=== PATIENT | male | born 1980 | race Caucasian/White ===

== ENCOUNTER 2016-12-22 08:25 | Emergency (ER) | payer OTHER ==
[~2016-12-22] VITALS: Ht 167.6 cm; Wt 81.5 kg
[~2016-12-22 08:25] MED LIST: ESCI20TA; FLUO40CA7 PO; QUET300XR; QUET300XR PO
[2016-12-22 09:28] LABS: BASOPHILS % (AUTO) 0.2 % (0.0-2.0); EOSINOPHILS % (AUTO) 1.7 % (1.0-6.0); HEMOGLOBIN 14.1 g/dL (13.5-17.5); LYMPHOCYTES # (AUTO) 1.2 K/uL (1.0-4.8); LYMPHOCYTES % (AUTO) 13.6 % (22.0-44.0); MEAN CORPUSCULAR HEMOGLOBIN 31.2 pg (26.0-34.0); MEAN CORPUSCULAR HGB CONC 33.5 G/dL (31.0-37.0); MEAN CORPUSCULAR VOLUME 93 fL (80-100); MONOCYTES # (AUTO) 0.7 K/uL (0.1-1.0); MONOCYTES % (AUTO) 7.3 % (2.0-9.0); NEUTROPHILS % (AUTO) 77.2 % (40.0-70.0); PLATELET COUNT (AUTO) 368 K/uL (150-450); RED BLOOD CELL COUNT(AUTO) 4.52 MIL/uL (4.50-5.90); RED CELL DISTRIBUTION WIDTH 13.3 % (11.5-14.5); WHITE BLOOD COUNT (AUTO) 9.1 K/uL (4.5-11.0)
[2016-12-22 09:38] LABS: ANION GAP 10 mmol/L (8-16); CALCIUM, TOTAL 8.8 mg/dL (8.8-10.5); CARBON DIOXIDE 26 mmol/L (22-29); CHLORIDE 98 mmol/L (98-107); CREATININE 0.91 mg/dL (0.60-1.30); GLOMERULAR FILTR. RATE CALC > 60 mL/min (>60); SODIUM SERUM 134 mmol/L (136-145); UREA NITROGEN, BLOOD 7 mg/dL (7-18)
[2016-12-22 09:43] LABS: ALANINE AMINOTRANSFERASE 43 U/L (12-78); ALBUMIN 3.7 g/dL (3.4-5.0); ASPARTATE AMINOTRANSFERASE 40 U/L (15-37); BILIRUBIN,TOTAL 0.3 mg/dL (0.1-1.0); TOTAL PROTEIN, SERUM 7.8 g/dL (6.4-8.2)
[2016-12-22 11:16] VITALS: BP 156/94
[2016-12-22] MEDS ORDERED: BUPR75 PO (21:00)
== END 2016-12-22 12:48 | disposition home or self-care (01) ==
LOC: EMS 08:26 → MERGE 08:26 → EMS 12:48
DX: F31.9 Bipolar disorder, unspecified (principal); F41.9 Anxiety disorder, unspecified; F12.90 Cannabis use, unspecified, uncomplicated
CPT/HCPCS: 36415; 80053; 80307; 85025; 99284; G0480

== ENCOUNTER 2016-12-22 20:47 | Emergency (ER) | payer OTHER ==
[~2016-12-22] VITALS: Ht 170.2 cm; Wt 81.8 kg
[2016-12-22] MEDS ORDERED: BUPR75 PO (21:00)
[2016-12-22 21:21] LABS: BASOPHILS # (AUTO) 0.03 K/uL (0.00-0.20); BASOPHILS % (AUTO) 0.4 % (0.0-2.0); EOSINOPHILS % (AUTO) 3.17 % (1.0-6.0); HEMATOCRIT 40.3 % (41-53); HEMOGLOBIN 13.9 g/dL (13.5-17.5); LYMPHOCYTES # (AUTO) 1.3 K/uL (1.0-4.8); MEAN CORPUSCULAR HEMOGLOBIN 31.8 pg (26.0-34.0); MEAN CORPUSCULAR HGB CONC 34.4 G/dL (31.0-37.0); MEAN CORPUSCULAR VOLUME 92 fL (80-100); MONOCYTES # (AUTO) 0.7 K/uL (0.1-1.0); MONOCYTES % (AUTO) 6.9 % (2.0-9.0); NEUTROPHILS # (AUTO) 7.2 K/uL (1.8-7.7); NEUTROPHILS % (AUTO) 75.6 % (40.0-70.0); PLATELET COUNT (AUTO) 363 K/uL (150-450); RED BLOOD CELL COUNT(AUTO) 4.36 MIL/uL (4.50-5.90); RED CELL DISTRIBUTION WIDTH 13.6 % (11.5-14.5); WHITE BLOOD COUNT (AUTO) 9.5 K/uL (4.5-11.0)
[2016-12-22 21:41] LABS: ANION GAP 14 mmol/L (8-16); CALCIUM, TOTAL 8.8 mg/dL (8.8-10.5); CARBON DIOXIDE 23 mmol/L (22-29); CHLORIDE 99 mmol/L (98-107); CREATININE 0.95 mg/dL (0.60-1.30); GLOMERULAR FILTR. RATE CALC > 60 mL/min (>60); POTASSIUM 3.7 mmol/L (3.5-5.1); SODIUM SERUM 136 mmol/L (136-145); UREA NITROGEN, BLOOD 11 mg/dL (7-18)
[2016-12-22 21:46] LABS: ALANINE AMINOTRANSFERASE 39 U/L (12-78); ALBUMIN 3.6 g/dL (3.4-5.0); ASPARTATE AMINOTRANSFERASE 35 U/L (15-37); BILIRUBIN,TOTAL 0.2 mg/dL (0.1-1.0); TOTAL PROTEIN, SERUM 7.6 g/dL (6.4-8.2)
[2016-12-22 23:18] VITALS: BP 147/85
== END 2016-12-23 01:30 | disposition left against medical advice (07) ==
LOC: EMS 20:49 → MERGE 20:49 → EMS 12-23 01:30
DX: Z00.8 Encounter for other general examination (principal); F31.9 Bipolar disorder, unspecified; F41.9 Anxiety disorder, unspecified; F12.90 Cannabis use, unspecified, uncomplicated; Z53.21 Procedure and treatment not carried out due to patient leaving prior to being seen by health care provider
CPT/HCPCS: 36415; 80053; 85025; G0480

== ENCOUNTER 2017-01-26 20:59 | Emergency (ER) | payer OTHER ==
[~2017-01-26] VITALS: Ht 162.6 cm; Wt 72.0 kg
[~2017-01-26 20:59] MED LIST changes: +BUPR75 PO
[2017-01-26 21:28] LABS: BASOPHILS # (AUTO) 0.06 K/uL (0.00-0.20); BASOPHILS % (AUTO) 0.5 % (0.0-2.0); EOSINOPHILS # (AUTO) 0.09 K/uL (0.00-0.70); EOSINOPHILS % (AUTO) 0.77 % (1.0-6.0); HEMATOCRIT 46.9 % (41-53); HEMOGLOBIN 15.8 g/dL (13.5-17.5); LYMPHOCYTES # (AUTO) 1.6 K/uL (1.0-4.8); LYMPHOCYTES % (AUTO) 14.2 % (22.0-44.0); MEAN CORPUSCULAR HEMOGLOBIN 31.4 pg (26.0-34.0); MEAN CORPUSCULAR HGB CONC 33.7 G/dL (31.0-37.0); MEAN CORPUSCULAR VOLUME 93 fL (80-100); MONOCYTES # (AUTO) 0.8 K/uL (0.1-1.0); MONOCYTES % (AUTO) 7.1 % (2.0-9.0); NEUTROPHILS # (AUTO) 8.7 K/uL (1.8-7.7); NEUTROPHILS % (AUTO) 77.5 % (40.0-70.0); PLATELET COUNT (AUTO) 398 K/uL (150-450); RED BLOOD CELL COUNT(AUTO) 5.03 MIL/uL (4.50-5.90); WHITE BLOOD COUNT (AUTO) 11.3 K/uL (4.5-11.0)
[2017-01-26 21:37] LABS: ANION GAP 11 mmol/L (8-16); CALCIUM, TOTAL 9.3 mg/dL (8.8-10.5); CARBON DIOXIDE 28 mmol/L (22-29); CHLORIDE 101 mmol/L (98-107); CREATININE 0.99 mg/dL (0.60-1.30); GLOMERULAR FILTR. RATE CALC > 60 mL/min (>60); POTASSIUM 3.9 mmol/L (3.5-5.1); SODIUM SERUM 140 mmol/L (136-145); UREA NITROGEN, BLOOD 11 mg/dL (7-18)
[2017-01-26 21:43] LABS: ALANINE AMINOTRANSFERASE 40 U/L (12-78); ASPARTATE AMINOTRANSFERASE 63 U/L (15-37); BILIRUBIN,TOTAL 0.4 mg/dL (0.1-1.0); TOTAL PROTEIN, SERUM 8.1 g/dL (6.4-8.2)
[2017-01-26] MEDS ORDERED: HALOPERIDOL 5 MG TABLET PO ONE (23:15)
[2017-01-26] MEDS ORDERED: LORazepam 2 MG TABLET PO ONE (23:15)
[2017-01-27 00:20] VITALS: BP 134/78
== END 2017-01-27 00:22 | disposition home or self-care (01) ==
LOC: EMS 21:01
DX: F25.9 Schizoaffective disorder, unspecified (principal); F31.9 Bipolar disorder, unspecified
CPT/HCPCS: 36415; 80053; 85025; 99284; G0480

== ENCOUNTER 2017-01-27 05:53 | Inpatient (IN) | payer MEDICAID, OTHER ==
[~2017-01-27] VITALS: Ht 167.6 cm; Wt 72.3 kg
[2017-01-27] MEDS ORDERED: HALOPERIDOL 5 MG TABLET PO ONE (07:30)
[2017-01-27] MEDS ORDERED: LORazepam 2 MG TABLET PO ONE (07:30)
[2017-01-27 14:55] LABS: BASOPHILS # (AUTO) 0.05 K/uL (0.00-0.20); BASOPHILS % (AUTO) 0.7 % (0.0-2.0); EOSINOPHILS # (AUTO) 0.14 K/uL (0.00-0.70); HEMATOCRIT 47.7 % (41-53); HEMOGLOBIN 15.7 g/dL (13.5-17.5); LYMPHOCYTES # (AUTO) 1.8 K/uL (1.0-4.8); LYMPHOCYTES % (AUTO) 22.7 % (22.0-44.0); MEAN CORPUSCULAR HEMOGLOBIN 31.2 pg (26.0-34.0); MEAN CORPUSCULAR HGB CONC 32.8 G/dL (31.0-37.0); MEAN CORPUSCULAR VOLUME 95 fL (80-100); MONOCYTES # (AUTO) 0.9 K/uL (0.1-1.0); MONOCYTES % (AUTO) 10.8 % (2.0-9.0); NEUTROPHILS # (AUTO) 5.1 K/uL (1.8-7.7); NEUTROPHILS % (AUTO) 64.1 % (40.0-70.0); PLATELET COUNT (AUTO) 355 K/uL (150-450); RED BLOOD CELL COUNT(AUTO) 5.02 MIL/uL (4.50-5.90)
[2017-01-27 15:08] LABS: ANION GAP 12 mmol/L (8-16); CARBON DIOXIDE 26 mmol/L (22-29); CHLORIDE 101 mmol/L (98-107); CREATININE 1.07 mg/dL (0.60-1.30); GLOMERULAR FILTR. RATE CALC > 60 mL/min (>60); SODIUM SERUM 139 mmol/L (136-145); UREA NITROGEN, BLOOD 10 mg/dL (7-18)
[2017-01-27 19:12] VITALS: BP 131/60
[2017-01-28 06:12] VITALS: BP 107/67
[2017-01-28 08:11] LABS: HEMOGLOBIN A1C 5.4 % (4.5-6.2)
[2017-01-28 08:41] LABS: CHOL/HDL RATIO 3.8 (4.2-7.3); THYROID STIMULATING HORMONE 0.66 uIU/mL (0.36-3.74)
[2017-01-28 09:07] VITALS: BP 132/63
[2017-01-28 16:00] VITALS: BP 132/71
[2017-01-28] MEDS: QUEtiapine FUMARATE 300 MG ER TABLET PO SCH (20:50)
[2017-01-28] MEDS ORDERED: IBUPROFEN 400 MG TABLET PO PRN (21:30)
[2017-01-28] MEDS ORDERED: ACETAMINOPHEN 325 MG TABLET PO PRN (21:30)
[2017-01-29 00:39] VITALS: BP 117/60
[2017-01-29 08:15] LABS: HEMOGLOBIN A1C 5.4 % (4.5-6.2)
[2017-01-29 08:20] LABS: CHOL/HDL RATIO 3.9 (4.2-7.3); THYROID STIMULATING HORMONE 0.61 uIU/mL (0.36-3.74)
[2017-01-29] MEDS: HALOPERIDOL 5 MG TABLET PO PRN (09:21)
[2017-01-29 09:26] VITALS: BP 126/70
[2017-01-29] MEDS ORDERED: HALOPERIDOL LACTATE 5 MG/ML VIAL IM ONE (10:30)
[2017-01-29] MEDS ORDERED: DiphenhydrAMINE HCL 50 MG/ML VIAL IM ONE (10:30)
[2017-01-29] MEDS ORDERED: LORazepam 2 MG/ML VIAL IM ONE (10:30)
[2017-01-29 16:00] VITALS: BP 118/68
[2017-01-29] MEDS: LORazepam 2 MG TABLET PO PRN (20:32)
[2017-01-29] MEDS: QUEtiapine FUMARATE 300 MG ER TABLET PO SCH (20:32)
[2017-01-30 08:17] VITALS: BP 117/62
[2017-01-30] MEDS: HALOPERIDOL 5 MG TABLET PO PRN ×2 (08:57→16:14)
[2017-01-30] MEDS: LORazepam 2 MG TABLET PO PRN ×2 (08:57→16:14)
[2017-01-30 16:00] VITALS: BP 128/75
[2017-01-30] MEDS: QUEtiapine FUMARATE 300 MG ER TABLET PO SCH (20:35)
[2017-01-31 01:48] VITALS: BP 112/62
[2017-01-31] MEDS: LORazepam 2 MG TABLET PO PRN ×3 (01:56→20:40)
[2017-01-31] MEDS: HALOPERIDOL 5 MG TABLET PO PRN (08:20)
[2017-01-31 08:45] VITALS: BP 104/62
[2017-01-31 16:00] VITALS: BP 128/68
[2017-01-31] MEDS: QUEtiapine FUMARATE 300 MG ER TABLET PO SCH (20:40)
[2017-02-01 02:55] VITALS: BP 116/73
[2017-02-01] MEDS: BuPROPion HCL 150 MG SR TABLET PO SCH (08:36)
[2017-02-01] MEDS: LORazepam 2 MG TABLET PO PRN ×3 (08:36→20:39)
[2017-02-01] MEDS: HALOPERIDOL 5 MG TABLET PO PRN ×2 (08:36→16:37)
[2017-02-01 10:52] VITALS: BP 123/67
[2017-02-01 16:35] VITALS: BP 119/65
[2017-02-01] MEDS: QUEtiapine FUMARATE 300 MG ER TABLET PO SCH (20:38)
[2017-02-01] MEDS: ZOLPIDEM TARTRATE 10 MG TABLET PO PRN (20:39)
[2017-02-02 06:26] VITALS: BP 110/69
[2017-02-02 08:18] VITALS: BP 113/63
[2017-02-02] MEDS: LORazepam 2 MG TABLET PO PRN (08:39)
[2017-02-02] MEDS: BuPROPion HCL 150 MG SR TABLET PO SCH (08:39)
[2017-02-02 16:11] VITALS: BP 120/66
[2017-02-02] MEDS: QUEtiapine FUMARATE 300 MG ER TABLET PO SCH (20:11)
[2017-02-02] MEDS: ZOLPIDEM TARTRATE 10 MG TABLET PO PRN (20:56)
[2017-02-03 05:15] VITALS: BP 122/72
[2017-02-03 08:14] VITALS: BP 134/72
[2017-02-03] MEDS: BuPROPion HCL 150 MG SR TABLET PO SCH (09:09)
[2017-02-03] MEDS: LORazepam 2 MG TABLET PO PRN ×3 (09:11→20:16)
[2017-02-03 16:00] VITALS: BP 132/81
[2017-02-03] MEDS: HALOPERIDOL 5 MG TABLET PO PRN (16:14)
[2017-02-03] MEDS: ZOLPIDEM TARTRATE 10 MG TABLET PO PRN (20:16)
[2017-02-03] MEDS: QUEtiapine FUMARATE 300 MG ER TABLET PO SCH (20:16)
[2017-02-04 06:07] VITALS: BP 122/74
[2017-02-04] MEDS: LORazepam 2 MG TABLET PO PRN ×2 (08:05→15:40)
[2017-02-04] MEDS: BuPROPion HCL 150 MG SR TABLET PO SCH (08:05)
[2017-02-04] MEDS: HALOPERIDOL 5 MG TABLET PO PRN ×2 (08:05→15:40)
[2017-02-04 08:15] VITALS: BP 114/75
[2017-02-04 16:00] VITALS: BP 129/68
[2017-02-04] MEDS: QUEtiapine FUMARATE 300 MG ER TABLET PO SCH (20:30)
[2017-02-05] MEDS ORDERED: MAG HYDROX/AL HYDROX/SIMETH ES 30 ML SUSPENSION UDCUP PO PRN (05:30)
[2017-02-05 06:46] VITALS: BP 124/69
[2017-02-05 08:14] VITALS: BP 111/61
[2017-02-05] MEDS: LORazepam 2 MG TABLET PO PRN ×2 (08:16→16:25)
[2017-02-05] MEDS: BuPROPion HCL 150 MG SR TABLET PO SCH (08:16)
[2017-02-05] MEDS: HALOPERIDOL 5 MG TABLET PO PRN ×2 (08:16→16:25)
[2017-02-05 16:00] VITALS: BP 132/72
[2017-02-05] MEDS: QUEtiapine FUMARATE 300 MG ER TABLET PO SCH (20:36)
[2017-02-06 00:37] VITALS: BP 112/77
[2017-02-06] MEDS: LORazepam 2 MG TABLET PO PRN ×3 (04:29→19:57)
[2017-02-06] MEDS: HALOPERIDOL 5 MG TABLET PO PRN (04:29)
[2017-02-06] MEDS: BuPROPion HCL 150 MG SR TABLET PO SCH (08:32)
[2017-02-06 08:46] VITALS: BP 141/70
[2017-02-06] MEDS ORDERED: LORazepam 2 MG/ML VIAL ONE (15:57)
[2017-02-06] MEDS ORDERED: DiphenhydrAMINE HCL 50 MG/ML VIAL ONE (15:58)
[2017-02-06] MEDS ORDERED: HALOPERIDOL LACTATE 5 MG/ML VIAL ONE (15:58)
[2017-02-06] MEDS ORDERED: HALOPERIDOL LACTATE 5 MG/ML VIAL IM ONE (16:15)
[2017-02-06] MEDS ORDERED: LORazepam 2 MG/ML VIAL IM ONE (16:15)
[2017-02-06] MEDS ORDERED: DiphenhydrAMINE HCL 50 MG/ML VIAL IM ONE (16:15)
[2017-02-06 16:38] VITALS: BP 124/68
[2017-02-06 16:46] VITALS: BP 128/78
[2017-02-06] MEDS: QUEtiapine FUMARATE 300 MG ER TABLET PO SCH (20:56)
[2017-02-07 00:56] VITALS: BP 116/70
[2017-02-07] MEDS: ZOLPIDEM TARTRATE 10 MG TABLET PO PRN ×2 (00:58→20:37)
[2017-02-07] MEDS: LORazepam 2 MG TABLET PO PRN ×3 (00:58→16:54)
[2017-02-07 08:14] VITALS: BP 114/72
[2017-02-07] MEDS: BuPROPion HCL 150 MG SR TABLET PO SCH (09:59)
[2017-02-07] MEDS: HALOPERIDOL 5 MG TABLET PO PRN (12:50)
[2017-02-07 16:00] VITALS: BP 118/69
[2017-02-07] MEDS: QUEtiapine FUMARATE 300 MG ER TABLET PO SCH (20:37)
[2017-02-08] MEDS: LORazepam 2 MG TABLET PO PRN ×4 (02:49→17:22)
[2017-02-08 05:04] VITALS: BP 122/72
[2017-02-08 08:23] VITALS: BP 105/59
[2017-02-08] MEDS: BuPROPion HCL 150 MG SR TABLET PO SCH (08:41)
[2017-02-08] MEDS: HALOPERIDOL 5 MG TABLET PO PRN ×3 (08:42→17:22)
[2017-02-08 16:00] VITALS: BP 109/65
[2017-02-08] MEDS: CIPROFLOXACIN HCL 0.3% 3.5 GM OPHTHALMIC OINTMENT OS SCH (17:06)
[2017-02-08] MEDS: QUEtiapine FUMARATE 300 MG ER TABLET PO SCH (20:04)
[2017-02-09] MEDS: LORazepam 2 MG TABLET PO PRN ×4 (03:23→17:55)
[2017-02-09 03:25] VITALS: BP 114/72
[2017-02-09 08:14] VITALS: BP 118/72
[2017-02-09] MEDS: HALOPERIDOL 5 MG TABLET PO PRN ×3 (08:27→17:55)
[2017-02-09] MEDS: BuPROPion HCL 150 MG SR TABLET PO SCH (08:28)
[2017-02-09] MEDS: CIPROFLOXACIN HCL 0.3% 3.5 GM OPHTHALMIC OINTMENT OS SCH ×2 (08:30→17:13)
[2017-02-09 16:13] VITALS: BP 115/67
[2017-02-09] MEDS: QUEtiapine FUMARATE 300 MG ER TABLET PO SCH (20:33)
[2017-02-09] MEDS: ZOLPIDEM TARTRATE 10 MG TABLET PO PRN (20:33)
[2017-02-10 01:06] VITALS: BP 112/62
[2017-02-10] MEDS: HALOPERIDOL 5 MG TABLET PO PRN ×4 (01:12→17:02)
[2017-02-10] MEDS: CIPROFLOXACIN HCL 0.3% 3.5 GM OPHTHALMIC OINTMENT OS SCH ×2 (08:27→17:02)
[2017-02-10] MEDS: BuPROPion HCL 150 MG SR TABLET PO SCH (08:28)
[2017-02-10] MEDS: LORazepam 2 MG TABLET PO PRN ×3 (08:28→17:02)
[2017-02-10 08:42] VITALS: BP 110/66
[2017-02-10 16:00] VITALS: BP 127/74
[2017-02-10] MEDS: ZOLPIDEM TARTRATE 10 MG TABLET PO PRN (20:40)
[2017-02-10] MEDS: QUEtiapine FUMARATE 300 MG ER TABLET PO SCH (20:40)
[2017-02-11 00:19] VITALS: BP 126/69
[2017-02-11] MEDS: HALOPERIDOL 5 MG TABLET PO PRN ×2 (08:23→13:33)
[2017-02-11] MEDS: BuPROPion HCL 150 MG SR TABLET PO SCH (08:23)
[2017-02-11] MEDS: LORazepam 2 MG TABLET PO PRN ×3 (08:23→17:33)
[2017-02-11 08:37] VITALS: BP 117/69
[2017-02-11] MEDS: CIPROFLOXACIN HCL 0.3% 3.5 GM OPHTHALMIC OINTMENT OS SCH ×2 (09:00→16:58)
[2017-02-11 16:14] VITALS: BP 131/68
[2017-02-11] MEDS: QUEtiapine FUMARATE 300 MG TABLET PO SCH (20:03)
[2017-02-12 05:49] VITALS: BP 128/64
[2017-02-12] MEDS: HALOPERIDOL 5 MG TABLET PO PRN ×3 (08:40→18:48)
[2017-02-12] MEDS: LORazepam 2 MG TABLET PO PRN ×3 (08:40→18:48)
[2017-02-12] MEDS: CIPROFLOXACIN HCL 0.3% 3.5 GM OPHTHALMIC OINTMENT OS SCH ×2 (08:41→16:34)
[2017-02-12 08:42] VITALS: BP 122/76
[2017-02-12] MEDS: BuPROPion HCL 150 MG SR TABLET PO SCH (10:57)
[2017-02-12 16:00] VITALS: BP 128/74
[2017-02-12] MEDS: QUEtiapine FUMARATE 300 MG TABLET PO SCH (20:37)
[2017-02-12] MEDS: ZOLPIDEM TARTRATE 10 MG TABLET PO PRN (20:37)
[2017-02-13 03:13] VITALS: BP 119/73
[2017-02-13] MEDS: BuPROPion HCL 150 MG SR TABLET PO SCH (08:05)
[2017-02-13] MEDS: CIPROFLOXACIN HCL 0.3% 3.5 GM OPHTHALMIC OINTMENT OS SCH (08:05)
[2017-02-13 08:16] VITALS: BP 110/62
[2017-02-13] MEDS ORDERED: BUPR150SR PO (08:54)
== END 2017-02-13 10:50 | disposition home or self-care (01) | DRG 750 ==
LOC: EMS 05:54 → MERGE 17:57 → B3A 17:57
PROVIDERS: ADMIT Psychiatry & Neurology Psychiatry; ATTEND Psychiatry & Neurology Psychiatry
DX: F25.9 Schizoaffective disorder, unspecified (principal); R56.9 Unspecified convulsions; R45.851 Suicidal ideations; F12.10 Cannabis abuse, uncomplicated
CPT/HCPCS: 83036; 84439; 84443; 99285; G0480; J1200; J1630; J2060

== ENCOUNTER 2017-02-17 20:15 | Emergency (ER) | payer OTHER ==
[~2017-02-17] VITALS: Ht 167.6 cm; Wt 81.8 kg
[~2017-02-17 20:15] MED LIST changes: +BUPR150SR PO; -BUPR75 PO
[2017-02-17] MEDS ORDERED: BUPR75 PO (20:20)
[2017-02-17] MEDS ORDERED: FLUO-191 PO (20:20)
[2017-02-17] MEDS ORDERED: QUET300T2 PO (20:20)
[2017-02-17 21:01] LABS: BASOPHILS % (AUTO) 0.5 % (0.0-2.0); EOSINOPHILS % (AUTO) 1.5 % (1.0-6.0); HEMATOCRIT 41.8 % (41-53); HEMOGLOBIN 13.7 g/dL (13.5-17.5); LYMPHOCYTES # (AUTO) 1.6 K/uL (1.0-4.8); LYMPHOCYTES % (AUTO) 16.1 % (22.0-44.0); MEAN CORPUSCULAR HEMOGLOBIN 30.3 pg (26.0-34.0); MEAN CORPUSCULAR HGB CONC 32.7 G/dL (31.0-37.0); MEAN CORPUSCULAR VOLUME 93 fL (80-100); MONOCYTES # (AUTO) 0.8 K/uL (0.1-1.0); MONOCYTES % (AUTO) 8.1 % (2.0-9.0); NEUTROPHILS # (AUTO) 7.2 K/uL (1.8-7.7); NEUTROPHILS % (AUTO) 73.8 % (40.0-70.0); PLATELET COUNT (AUTO) 362 K/uL (150-450); RED CELL DISTRIBUTION WIDTH 12.6 % (11.5-14.5); WHITE BLOOD COUNT (AUTO) 9.7 K/uL (4.5-11.0)
[2017-02-17 21:11] LABS: ANION GAP 6 mmol/L (8-16); CALCIUM, TOTAL 8.3 mg/dL (8.8-10.5); CARBON DIOXIDE 28 mmol/L (22-29); CHLORIDE 97 mmol/L (98-107); CREATININE 0.98 mg/dL (0.60-1.30); GLOMERULAR FILTR. RATE CALC > 60 mL/min (>60); POTASSIUM 3.4 mmol/L (3.5-5.1); SODIUM SERUM 131 mmol/L (136-145); UREA NITROGEN, BLOOD 8 mg/dL (7-18)
[2017-02-17 21:17] LABS: ALANINE AMINOTRANSFERASE 32 U/L (12-78); ALBUMIN 3.9 g/dL (3.4-5.0); ASPARTATE AMINOTRANSFERASE 25 U/L (15-37); BILIRUBIN,TOTAL 0.2 mg/dL (0.1-1.0); TOTAL PROTEIN, SERUM 7.6 g/dL (6.4-8.2)
[2017-02-17 22:07] LABS: ADD UA MICROSCOPIC NO; APPEARANCE,URINE CLEAR (CLEAR); GLUCOSE, URINE (UA) NEGATIVE (NEGATIVE); KETONES,URINE NEGATIVE (NEGATIVE); LEUKOCYTE ESTERASE ,URINE NEGATIVE (NEGATIVE); OCCULT BLOOD,URINE NEGATIVE (NEGATIVE); PROTEIN,URINE NEGATIVE (NEGATIVE)
[2017-02-17] MEDS ORDERED: LORazepam 2 MG TABLET PO ONE (23:15)
[2017-02-18 00:53] VITALS: BP 119/75
== END 2017-02-18 01:34 | disposition home or self-care (01) ==
LOC: EMS 20:18
DX: F41.9 Anxiety disorder, unspecified (principal); F25.9 Schizoaffective disorder, unspecified; F31.9 Bipolar disorder, unspecified
CPT/HCPCS: 36415; 80053; 80307; 81003; 85025; 99284; G0480

== ENCOUNTER 2018-11-30 03:58 | Emergency (ER) | payer OTHER ==
[~2018-11-30] VITALS: Ht 167.6 cm; Wt 81.0 kg
[~2018-11-30 03:58] MED LIST changes: +BUPR75 PO; -ESCI20TA; +FLUO-191 PO; +QUET300T2 PO; +QUET300T5 PO; -QUET300XR; -QUET300XR PO
[2018-11-30 04:53] LABS: BASOPHILS % (AUTO) 0.9 % (0.0-2.0); EOSINOPHILS % (AUTO) 2.2 % (1.0-6.0); HEMOGLOBIN 14.3 g/dL (13.5-17.5); LYMPHOCYTES # (AUTO) 1.8 K/uL (1.0-4.8); LYMPHOCYTES % (AUTO) 19.2 % (22.0-44.0); MEAN CORPUSCULAR HGB CONC 34.8 G/dL (31.0-37.0); MEAN CORPUSCULAR VOLUME 89 fL (80-100); MONOCYTES # (AUTO) 0.9 K/uL (0.1-1.0); MONOCYTES % (AUTO) 9.6 % (2.0-9.0); NEUTROPHILS # (AUTO) 6.2 K/uL (1.8-7.7); NEUTROPHILS % (AUTO) 68.1 % (40.0-70.0); PLATELET COUNT (AUTO) 315 K/uL (150-450); RED CELL DISTRIBUTION WIDTH 13.1 % (11.5-14.5)
[2018-11-30 05:06] LABS: ALANINE AMINOTRANSFERASE 24 U/L (12-78); ALBUMIN 3.5 g/dL (3.4-5.0); ALKALINE PHOSPHATASE 88 U/L (46-116); ANION GAP 9 mmol/L (8-16); ASPARTATE AMINOTRANSFERASE 17 U/L (15-37); BILIRUBIN,TOTAL 0.2 mg/dL (0.1-1.0); CALCIUM, TOTAL 8.5 mg/dL (8.8-10.5); CARBON DIOXIDE 26 mmol/L (22-29); CHLORIDE 103 mmol/L (98-107); GLOMERULAR FILTR. RATE CALC > 60 mL/min (>60); GLUCOSE,RANDOM 110 mg/dL (70-110); POTASSIUM 3.2 mmol/L (3.5-5.1); SODIUM SERUM 138 mmol/L (136-145); TOTAL PROTEIN, SERUM 7.3 g/dL (6.4-8.2); UREA NITROGEN, BLOOD 7 mg/dL (7-18)
[2018-11-30 06:59] LABS: AMPHET/METH SCREEN,URINE NEGATIVE (NEGATIVE); BARBITURATE SCREEN, URINE POSITIVE (NEGATIVE); BENZODIAZEPINES SCREEN,URINE NEGATIVE (NEGATIVE); CANNABINOID SCREEN,URINE POSITIVE (NEGATIVE); COCAINE SCREEN,URINE NEGATIVE (NEGATIVE); METHADONE SCREEN, URINE NEGATIVE (NEGATIVE); OPIATE SCREEN,URINE NEGATIVE (NEGATIVE); PHENCYCLIDINE SCREEN,URINE NEGATIVE (NEGATIVE)
[2018-11-30] MEDS ORDERED: QUEtiapine FUMARATE 50 MG ER TABLET PO ONE (07:15)
[2018-11-30] MEDS ORDERED: POTASSIUM CHLORIDE 20 MEQ ER TABLET PO ONE (07:15)
[2018-11-30 08:02] VITALS: BP 133/79
[2018-12-02] MEDS ORDERED: FLUO-191 PO (11:30)
== END 2018-11-30 08:05 | disposition home or self-care (01) ==
LOC: EMS 03:59
DX: F25.0 Schizoaffective disorder, bipolar type (principal); E87.6 Hypokalemia; Z79.899 Other long term (current) drug therapy
CPT/HCPCS: 36415; 80053; 80307; 85025; 99284; G0480

== ENCOUNTER 2018-11-30 08:52 | Emergency (ER) | payer OTHER ==
[~2018-11-30] VITALS: Ht 172.7 cm; Wt 81.8 kg
[2018-11-30 10:10] VITALS: BP 118/72
[2018-12-02] MEDS ORDERED: FLUO-191 PO (11:30)
== END 2018-11-30 10:13 | disposition home or self-care (01) ==
LOC: EMS 08:53
DX: Z02.89 Encounter for other administrative examinations (principal); F25.0 Schizoaffective disorder, bipolar type

== ENCOUNTER 2018-11-30 22:27 | Emergency (ER) | payer OTHER ==
[~2018-11-30] VITALS: Ht 167.6 cm; Wt 81.8 kg
[2018-12-01] LABS: BASOPHILS % (AUTO) 1.1 % (0.0-2.0); HEMATOCRIT 38.5 % (41-53); HEMOGLOBIN 13.3 g/dL (13.5-17.5); LYMPHOCYTES # (AUTO) 1.8 K/uL (1.0-4.8); LYMPHOCYTES % (AUTO) 23.5 % (22.0-44.0); MEAN CORPUSCULAR HEMOGLOBIN 31.4 pg (26.0-34.0); MEAN CORPUSCULAR HGB CONC 34.5 G/dL (31.0-37.0); MEAN CORPUSCULAR VOLUME 91 fL (80-100); MONOCYTES # (AUTO) 0.9 K/uL (0.1-1.0); MONOCYTES % (AUTO) 11.7 % (2.0-9.0); NEUTROPHILS # (AUTO) 4.6 K/uL (1.8-7.7); NEUTROPHILS % (AUTO) 60.7 % (40.0-70.0); PLATELET COUNT (AUTO) 287 K/uL (150-450); RED BLOOD CELL COUNT(AUTO) 4.22 MIL/uL (4.50-5.90); RED CELL DISTRIBUTION WIDTH 13.3 % (11.5-14.5)
[2018-12-01 00:32] LABS: ANION GAP 12 mmol/L (8-16); CALCIUM, TOTAL 8.3 mg/dL (8.8-10.5); CARBON DIOXIDE 22 mmol/L (22-29); CHLORIDE 103 mmol/L (98-107); GLOMERULAR FILTR. RATE CALC > 60 mL/min (>60); GLUCOSE,RANDOM 98 mg/dL (70-110); POTASSIUM 3.9 mmol/L (3.5-5.1); SODIUM SERUM 137 mmol/L (136-145); UREA NITROGEN, BLOOD 10 mg/dL (7-18)
[2018-12-01 00:37] LABS: ALANINE AMINOTRANSFERASE 22 U/L (12-78); ALBUMIN 3.1 g/dL (3.4-5.0); ALKALINE PHOSPHATASE 82 U/L (46-116); ASPARTATE AMINOTRANSFERASE 16 U/L (15-37); BILIRUBIN,TOTAL 0.2 mg/dL (0.1-1.0)
[2018-12-01 10:39] VITALS: BP 131/79
[2018-12-02] MEDS ORDERED: FLUO-191 PO (11:30)
== END 2018-12-01 10:42 | disposition home or self-care (01) ==
LOC: EMS 22:28
DX: F25.0 Schizoaffective disorder, bipolar type (principal)
CPT/HCPCS: 36415; 80053; 85025; 99284; G0480

== ENCOUNTER 2018-12-02 16:33 | Emergency (ER) | payer OTHER ==
[~2018-12-02] VITALS: Ht 167.6 cm; Wt 81.8 kg
[~2018-12-02 16:33] MED LIST changes: -BUPR75 PO; -QUET300T2 PO
[2018-12-02] MEDS ORDERED: ONDANSETRON HCL 4 MG TABLET PO ONE (22:00)
[2018-12-02] MEDS ORDERED: FAMOTIDINE 20 MG TABLET PO ONE (22:00)
[2018-12-02] MEDS ORDERED: SODIUM CHLORIDE 0.9% 1,000 ML IV ONE (22:30)
[2018-12-02 23:59] VITALS: BP 136/69
== END 2018-12-03 00:39 | disposition home or self-care (01) ==
LOC: EMS 16:34
DX: R10.84 Generalized abdominal pain (principal); R19.7 Diarrhea, unspecified; R11.2 Nausea with vomiting, unspecified; F31.9 Bipolar disorder, unspecified; F20.9 Schizophrenia, unspecified; Z79.899 Other long term (current) drug therapy
CPT/HCPCS: 74176; 96360; 99284; J7030; Q0162

== ENCOUNTER 2018-12-03 08:34 | Emergency (ER) | payer OTHER ==
[~2018-12-03] VITALS: Ht 167.6 cm; Wt 80.0 kg
[~2018-12-03 08:34] MED LIST changes: -FLUO40CA7 PO
[2018-12-03 10:14] LABS: BASOPHILS % (AUTO) 0.8 % (0.0-2.0); EOSINOPHILS % (AUTO) 2.3 % (1.0-6.0); HEMATOCRIT 38.4 % (41-53); HEMOGLOBIN 13.4 g/dL (13.5-17.5); LYMPHOCYTES # (AUTO) 1.6 K/uL (1.0-4.8); LYMPHOCYTES % (AUTO) 18.3 % (22.0-44.0); MEAN CORPUSCULAR HEMOGLOBIN 31.6 pg (26.0-34.0); MEAN CORPUSCULAR VOLUME 90 fL (80-100); MONOCYTES # (AUTO) 0.8 K/uL (0.1-1.0); MONOCYTES % (AUTO) 8.4 % (2.0-9.0); NEUTROPHILS # (AUTO) 6.2 K/uL (1.8-7.7); NEUTROPHILS % (AUTO) 70.2 % (40.0-70.0); PLATELET COUNT (AUTO) 329 K/uL (150-450); RED BLOOD CELL COUNT(AUTO) 4.26 MIL/uL (4.50-5.90); RED CELL DISTRIBUTION WIDTH 13.1 % (11.5-14.5)
[2018-12-03 10:23] LABS: ANION GAP 9 mmol/L (8-16); CALCIUM, TOTAL 8.4 mg/dL (8.8-10.5); CARBON DIOXIDE 27 mmol/L (22-29); CHLORIDE 104 mmol/L (98-107); CREATININE 0.93 mg/dL (0.60-1.30); GLOMERULAR FILTR. RATE CALC > 60 mL/min (>60); GLUCOSE,RANDOM 106 mg/dL (70-110); POTASSIUM 3.9 mmol/L (3.5-5.1); SODIUM SERUM 140 mmol/L (136-145); UREA NITROGEN, BLOOD 9 mg/dL (7-18)
[2018-12-03 10:24] LABS: AMPHET/METH SCREEN,URINE NEGATIVE (NEGATIVE); BARBITURATE SCREEN, URINE NEGATIVE (NEGATIVE); BENZODIAZEPINES SCREEN,URINE NEGATIVE (NEGATIVE); CANNABINOID SCREEN,URINE POSITIVE (NEGATIVE); COCAINE SCREEN,URINE NEGATIVE (NEGATIVE); METHADONE SCREEN, URINE NEGATIVE (NEGATIVE); OPIATE SCREEN,URINE NEGATIVE (NEGATIVE)
[2018-12-03 10:27] LABS: PHENCYCLIDINE SCREEN,URINE NEGATIVE (NEGATIVE)
[2018-12-03 10:29] LABS: ALANINE AMINOTRANSFERASE 32 U/L (12-78); ALBUMIN 3.4 g/dL (3.4-5.0); ALKALINE PHOSPHATASE 80 U/L (46-116); ASPARTATE AMINOTRANSFERASE 20 U/L (15-37); BILIRUBIN,TOTAL 0.2 mg/dL (0.1-1.0)
[2018-12-03 12:19] VITALS: BP 122/77
== END 2018-12-03 12:29 | disposition home or self-care (01) ==
LOC: EMS 08:36
DX: F20.9 Schizophrenia, unspecified (principal); F31.9 Bipolar disorder, unspecified; Z59.0 Homelessness; Z79.899 Other long term (current) drug therapy

== ENCOUNTER 2018-12-05 19:07 | Emergency (ER) | payer OTHER ==
[~2018-12-05] VITALS: Ht 167.6 cm; Wt 81.8 kg
[2018-12-05 20:31] LABS: BASOPHILS % (AUTO) 0.6 % (0.0-2.0); EOSINOPHILS % (AUTO) 0.9 % (1.0-6.0); HEMATOCRIT 39.5 % (41-53); HEMOGLOBIN 14.2 g/dL (13.5-17.5); LYMPHOCYTES # (AUTO) 1.1 K/uL (1.0-4.8); LYMPHOCYTES % (AUTO) 10.2 % (22.0-44.0); MEAN CORPUSCULAR HEMOGLOBIN 32.2 pg (26.0-34.0); MEAN CORPUSCULAR HGB CONC 35.9 G/dL (31.0-37.0); MEAN CORPUSCULAR VOLUME 90 fL (80-100); MONOCYTES # (AUTO) 0.5 K/uL (0.1-1.0); MONOCYTES % (AUTO) 5.1 % (2.0-9.0); NEUTROPHILS # (AUTO) 8.8 K/uL (1.8-7.7); NEUTROPHILS % (AUTO) 83.2 % (40.0-70.0); PLATELET COUNT (AUTO) 362 K/uL (150-450); RED CELL DISTRIBUTION WIDTH 13.2 % (11.5-14.5)
[2018-12-05 20:33] LABS: ANION GAP 11 mmol/L (8-16); CALCIUM, TOTAL 8.7 mg/dL (8.8-10.5); CARBON DIOXIDE 26 mmol/L (22-29); CHLORIDE 101 mmol/L (98-107); CREATININE 1.18 mg/dL (0.60-1.30); GLOMERULAR FILTR. RATE CALC > 60 mL/min (>60); GLUCOSE,RANDOM 156 mg/dL (70-110); POTASSIUM 3.6 mmol/L (3.5-5.1); SODIUM SERUM 138 mmol/L (136-145); UREA NITROGEN, BLOOD 13 mg/dL (7-18)
[2018-12-05 20:35] LABS: AMPHET/METH SCREEN,URINE NEGATIVE (NEGATIVE); BARBITURATE SCREEN, URINE NEGATIVE (NEGATIVE); BENZODIAZEPINES SCREEN,URINE NEGATIVE (NEGATIVE); CANNABINOID SCREEN,URINE NEGATIVE (NEGATIVE); COCAINE SCREEN,URINE NEGATIVE (NEGATIVE); METHADONE SCREEN, URINE NEGATIVE (NEGATIVE); OPIATE SCREEN,URINE NEGATIVE (NEGATIVE)
[2018-12-05 20:38] LABS: PHENCYCLIDINE SCREEN,URINE NEGATIVE (NEGATIVE)
[2018-12-05 20:40] LABS: ALANINE AMINOTRANSFERASE 29 U/L (12-78); ALBUMIN 3.8 g/dL (3.4-5.0); ALKALINE PHOSPHATASE 98 U/L (46-116); ASPARTATE AMINOTRANSFERASE 19 U/L (15-37); BILIRUBIN,TOTAL 0.2 mg/dL (0.1-1.0); TOTAL PROTEIN, SERUM 7.8 g/dL (6.4-8.2)
[2018-12-05 21:45] VITALS: BP 121/75
[2018-12-05] MEDS ORDERED: LORazepam 1 MG TABLET PO ONE (21:45)
[2018-12-06] MEDS ORDERED: RANI150T7 PO (15:50)
== END 2018-12-05 21:56 | disposition home or self-care (01) ==
LOC: EMS 19:08
DX: F20.9 Schizophrenia, unspecified (principal); F31.9 Bipolar disorder, unspecified; Z79.899 Other long term (current) drug therapy; Z59.0 Homelessness
CPT/HCPCS: 36415; 80053; 80307; 85025; 99284; G0480

== ENCOUNTER 2018-12-06 14:51 | Emergency (ER) | payer OTHER ==
[~2018-12-06] VITALS: Ht 170.2 cm; Wt 81.8 kg
[2018-12-06] MEDS ORDERED: RANI150T7 PO (15:50)
[2018-12-06] MEDS ORDERED: PB/HYOSCY/ATR/SCOP/LIDO/MAALOX 55 ML BOTTLE PO ONE (18:15)
[2018-12-06 19:03] LABS: HEMATOCRIT 38.8 % (41-53); HEMOGLOBIN 13.5 g/dL (13.5-17.5); LYMPHOCYTES # (AUTO) 1.7 K/uL (1.0-4.8); LYMPHOCYTES % (AUTO) 16.4 % (22.0-44.0); MEAN CORPUSCULAR HEMOGLOBIN 31.5 pg (26.0-34.0); MEAN CORPUSCULAR HGB CONC 34.8 G/dL (31.0-37.0); MEAN CORPUSCULAR VOLUME 90 fL (80-100); MONOCYTES # (AUTO) 0.8 K/uL (0.1-1.0); MONOCYTES % (AUTO) 7.6 % (2.0-9.0); NEUTROPHILS # (AUTO) 7.5 K/uL (1.8-7.7); PLATELET COUNT (AUTO) 351 K/uL (150-450); RED CELL DISTRIBUTION WIDTH 13.3 % (11.5-14.5)
[2018-12-06 19:07] LABS: ANION GAP 10 mmol/L (8-16); CALCIUM, TOTAL 9.2 mg/dL (8.8-10.5); CARBON DIOXIDE 27 mmol/L (22-29); CHLORIDE 99 mmol/L (98-107); CREATININE 0.91 mg/dL (0.60-1.30); GLOMERULAR FILTR. RATE CALC > 60 mL/min (>60); GLUCOSE,RANDOM 96 mg/dL (70-110); POTASSIUM 3.7 mmol/L (3.5-5.1); SODIUM SERUM 136 mmol/L (136-145); UREA NITROGEN, BLOOD 7 mg/dL (7-18)
[2018-12-06 19:13] LABS: ALANINE AMINOTRANSFERASE 25 U/L (12-78); ALBUMIN 3.8 g/dL (3.4-5.0); ALKALINE PHOSPHATASE 69 U/L (46-116); ASPARTATE AMINOTRANSFERASE 18 U/L (15-37); BILIRUBIN,TOTAL 0.4 mg/dL (0.1-1.0); LIPASE 43 U/L (73-393); TOTAL PROTEIN, SERUM 7.6 g/dL (6.4-8.2)
[2018-12-06] MEDS ORDERED: IOVERSOL 320 MG/ML 100 ML VIAL ONE (19:23)
[2018-12-06] MEDS ORDERED: SODIUM CHLORIDE 0.9% 0 ML ONE (19:23)
[2018-12-06 20:35] VITALS: BP 128/70
== END 2018-12-06 20:50 | disposition home or self-care (01) ==
LOC: EMS 14:52
DX: R10.13 Epigastric pain (principal); R11.0 Nausea; F31.9 Bipolar disorder, unspecified; F20.9 Schizophrenia, unspecified
CPT/HCPCS: 36415; 80053; 83690; 85025; 99283; G0480; J7050

== ENCOUNTER 2018-12-07 06:44 | Emergency (ER) | payer OTHER ==
[~2018-12-07] VITALS: Ht 167.6 cm; Wt 81.8 kg
[~2018-12-07 06:44] MED LIST changes: +RANI150T7 PO
[2018-12-07] MEDS ORDERED: PB/HYOSCY/ATR/SCOP/LIDO/MAALOX 55 ML BOTTLE PO ONE (08:00)
[2018-12-07 08:19] LABS: AMPHET/METH SCREEN,URINE NEGATIVE (NEGATIVE); BARBITURATE SCREEN, URINE POSITIVE (NEGATIVE); BENZODIAZEPINES SCREEN,URINE NEGATIVE (NEGATIVE); CANNABINOID SCREEN,URINE POSITIVE (NEGATIVE); COCAINE SCREEN,URINE NEGATIVE (NEGATIVE); METHADONE SCREEN, URINE NEGATIVE (NEGATIVE); OPIATE SCREEN,URINE NEGATIVE (NEGATIVE)
[2018-12-07 08:20] LABS: PHENCYCLIDINE SCREEN,URINE NEGATIVE (NEGATIVE)
[2018-12-07 08:22] LABS: BASOPHILS % (AUTO) 0.6 % (0.0-2.0); HEMATOCRIT 38.5 % (41-53); HEMOGLOBIN 13.8 g/dL (13.5-17.5); LYMPHOCYTES % (AUTO) 10.8 % (22.0-44.0); MEAN CORPUSCULAR HEMOGLOBIN 31.9 pg (26.0-34.0); MEAN CORPUSCULAR HGB CONC 35.8 G/dL (31.0-37.0); MEAN CORPUSCULAR VOLUME 89 fL (80-100); MONOCYTES # (AUTO) 0.6 K/uL (0.1-1.0); MONOCYTES % (AUTO) 6.5 % (2.0-9.0); NEUTROPHILS # (AUTO) 7.6 K/uL (1.8-7.7); NEUTROPHILS % (AUTO) 81.1 % (40.0-70.0); PLATELET COUNT (AUTO) 324 K/uL (150-450); RED BLOOD CELL COUNT(AUTO) 4.33 MIL/uL (4.50-5.90); RED CELL DISTRIBUTION WIDTH 13.3 % (11.5-14.5)
[2018-12-07 08:35] LABS: ANION GAP 7 mmol/L (8-16); CALCIUM, TOTAL 8.9 mg/dL (8.8-10.5); CARBON DIOXIDE 29 mmol/L (22-29); CHLORIDE 102 mmol/L (98-107); CREATININE 0.91 mg/dL (0.60-1.30); GLOMERULAR FILTR. RATE CALC > 60 mL/min (>60); GLUCOSE,RANDOM 91 mg/dL (70-110); POTASSIUM 4.2 mmol/L (3.5-5.1); SODIUM SERUM 138 mmol/L (136-145); UREA NITROGEN, BLOOD 8 mg/dL (7-18)
[2018-12-07 08:41] LABS: ALANINE AMINOTRANSFERASE 24 U/L (12-78); ALBUMIN 3.7 g/dL (3.4-5.0); ALKALINE PHOSPHATASE 65 U/L (46-116); ASPARTATE AMINOTRANSFERASE 15 U/L (15-37); BILIRUBIN,TOTAL 0.4 mg/dL (0.1-1.0); LIPASE 41 U/L (73-393); TOTAL PROTEIN, SERUM 7.5 g/dL (6.4-8.2)
[2018-12-07 09:48] VITALS: BP 139/83
== END 2018-12-07 09:59 | disposition home or self-care (01) ==
LOC: EMS 06:45
DX: K27.9 Peptic ulcer, site unspecified, unspecified as acute or chronic, without hemorrhage or perforation (principal); R42 Dizziness and giddiness; F31.9 Bipolar disorder, unspecified; F20.9 Schizophrenia, unspecified; Z79.899 Other long term (current) drug therapy
CPT/HCPCS: 36415; 80053; 80307; 83690; 85025; 99283; G0480

== ENCOUNTER 2021-09-08 08:45 | Inpatient (IN) | payer OTHER ==
[~2021-09-08] VITALS: Ht 175.3 cm; Wt 85.4 kg
[2021-09-08 09:20] LABS: BASOPHILS % (AUTO) 0.5 % (0.0-2.0); EOSINOPHILS % (AUTO) 1.6 % (1.0-6.0); HEMATOCRIT 36.5 % (41-53); HEMOGLOBIN 12.6 g/dL (13.5-17.5); LYMPHOCYTES # (AUTO) 0.8 K/uL (1.0-4.8); LYMPHOCYTES % (AUTO) 11.2 % (22.0-44.0); MEAN CORPUSCULAR HEMOGLOBIN 31.2 pg (26.0-34.0); MEAN CORPUSCULAR HGB CONC 34.5 G/dL (31.0-37.0); MEAN CORPUSCULAR VOLUME 91 fL (80-100); MONOCYTES # (AUTO) 0.4 K/uL (0.1-1.0); MONOCYTES % (AUTO) 5.8 % (2.0-9.0); NEUTROPHILS # (AUTO) 5.6 K/uL (1.8-7.7); NEUTROPHILS % (AUTO) 80.9 % (40.0-70.0); PLATELET COUNT (AUTO) 284 K/uL (150-450); RED BLOOD CELL COUNT(AUTO) 4.03 MIL/uL (4.50-5.90); RED CELL DISTRIBUTION WIDTH 12.7 % (11.5-14.5)
[2021-09-08 09:20] LABS: GLUCOSE,POINT OF CARE 295 MG/DL (70-110)
[2021-09-08] MEDS: OXYGEN THERAPY IH SCH ×2 (09:37→20:00)
[2021-09-08 09:55] LABS: ALANINE AMINOTRANSFERASE 25 U/L (12-78); ALKALINE PHOSPHATASE 66 U/L (46-116); ANION GAP 12 mmol/L (8-16); ASPARTATE AMINOTRANSFERASE 20 U/L (15-37); BILIRUBIN,TOTAL 0.3 mg/dL (0.1-1.0); CALCIUM, TOTAL 8.3 mg/dL (8.8-10.5); CARBON DIOXIDE 23 mmol/L (22-29); CHLORIDE 99 mmol/L (98-107); CREATINE KINASE, TOTAL ONLY 851 U/L (39-308); CREATININE 1.42 mg/dL (0.60-1.30); GLOMERULAR FILTR. RATE CALC 56 mL/min (>60); GLUCOSE,RANDOM 291 mg/dL (70-110); LIPASE 117 U/L (73-393); POTASSIUM 2.8 mmol/L (3.5-5.1); SODIUM SERUM 134 mmol/L (136-145); TOTAL PROTEIN, SERUM 6.4 g/dL (6.4-8.2); UREA NITROGEN, BLOOD 11 mg/dL (7-18)
[2021-09-08] MEDS ORDERED: NALOXONE HCL 0.4 MG/ML VIAL IVP ONE (10:30)
[2021-09-08] MEDS ORDERED: NALOXONE HCL 1 MG/ML SYRINGE IVP ONE ×2 (10:45→14:30)
[2021-09-08] MEDS ORDERED: FLUMAZENIL 0.1 MG/ML 5 ML VIAL IVP ONE (11:15)
[2021-09-08 11:42] LABS: AMPHET/METH SCREEN,URINE NEGATIVE (NEGATIVE); BARBITURATE SCREEN, URINE NEGATIVE (NEGATIVE); BENZODIAZEPINES SCREEN,URINE NEGATIVE (NEGATIVE); CANNABINOID SCREEN,URINE POSITIVE (NEGATIVE); COCAINE SCREEN,URINE NEGATIVE (NEGATIVE); METHADONE SCREEN, URINE NEGATIVE (NEGATIVE); OPIATE SCREEN,URINE NEGATIVE (NEGATIVE); PHENCYCLIDINE SCREEN,URINE NEGATIVE (NEGATIVE)
[2021-09-08] MEDS ORDERED: NALOXONE HCL 1 MG/ML SYRINGE IVP PRN (11:45)
[2021-09-08] MEDS ORDERED: SODIUM CHLORIDE 0.9% 1,000 ML IV ONE (11:45)
[2021-09-08] MEDS ORDERED: BISACODYL 10 MG RECTAL RECTAL SUPPOSITORY PR PRN (11:45)
[2021-09-08] MEDS ORDERED: MAGNESIUM HYDROXIDE SUSPENSION 30 ML UDCUP PO PRN (11:45)
[2021-09-08] MEDS ORDERED: ZOLPIDEM TARTRATE 5 MG TABLET PO PRN (11:45)
[2021-09-08 14:38] LABS: SALICYLATE 0.9 mg/dL (2.8-20.0)
[2021-09-08 14:42] LABS: ACETAMINOPHEN < 2 mcg/mL (10-30)
[2021-09-08 14:51] LABS: ABG BASE EXCESS -5.3 mmol/L (-2.0-3.0); ABG CARBOXYHEMOGLOBIN 0.3 % (0.0-1.5); ABG HCO3 20.5 mmol/L (22.0-26.0); ABG METHEMOGLOBIN 0.3 % (0.0-1.5); ABG OXYGEN CONTENT 16.6 mL/dL (15.0-23.0); ABG OXYGEN SATURATION 92.5 % (95.0-98.0); ABG OXYHEMOGLOBIN 91.9 % (94.0-100.0); ABG PCO2 37 mmHg (35-45); ABG PH 7.361 (7.350-7.450); ABG TOTAL HEMOGLOBIN 12.8 G/dL (12.0-18.0); O2 DEVICE,BLOOD GAS CANNULA (ROOM AIR); PO2, ARTERIAL BG 63.8 mmHg (92.0-100.0); SITE, BLOOD GAS RT RADIAL; SOURCE, BLOOD GAS ARTERIAL; TEMPERATURE, FAHRENHEIT, BG 97.9 FAHREN (96.0-98.6)
[2021-09-08] MEDS ORDERED: PHENYLEPHRINE HCL IN 0.9% NACL 400 MCG/10 ML SYRINGE IVP ONE ×2 (14:55→15:31)
[2021-09-08] MEDS ORDERED: NOREPINEPHRINE 4 MG/D5%-WATER 250 ML IV ONE (14:55)
[2021-09-08] MEDS ORDERED: LevETIRAcetam 1,000 MG in DEXTROSE 5%-WATER 100 ML IV ONE (15:00)
[2021-09-08] MEDS: HEPARIN SODIUM,PORCINE 5,000 UNITS/ML VIAL SQ SCH (15:37)
[2021-09-08] MEDS ORDERED: POTASSIUM CHL 10 MEQ/WATER 50 ML IV ONE ×2 (16:30→17:30)
[2021-09-08] MEDS: NOREPINEPHRINE 4 MG/D5%-WATER 250 ML IV PRN ×2 (16:34→19:28)
[2021-09-08] MEDS ORDERED: MAGNESIUM SULFATE 2 GM, MVI, ADULT NO.1 WITH VIT K 10 ML, THIAMINE 100 MG, FOLIC ACID 1... IV ONE ×5 (17:30)
[2021-09-08] MEDS: DOCUSATE SODIUM 100 MG CAPSULE PO SCH (21:00)
[2021-09-09] VITALS: BP 106/64
[2021-09-09] MEDS ORDERED: INFLUENZA VIRUS VACCINE QVS 2021-22 (6MO+)/PF 60 MCG/0.5 ML SYRINGE IM. ONE (02:00)
[2021-09-09] MEDS: HEPARIN SODIUM,PORCINE 5,000 UNITS/ML VIAL SQ SCH ×3 (03:33→17:04)
[2021-09-09] MEDS: PROPOFOL 1000 MG/ISO-OSM 100 ML IV PRN ×2 (03:37→03:50)
[2021-09-09 04:00] VITALS: BP 107/59
[2021-09-09 04:54] LABS: COVID AG,FIA SOURCE NASAL SWAB
[2021-09-09 05:21] LABS: CREATININE 1.46 mg/dL (0.60-1.30); POTASSIUM 3.8 mmol/L (3.5-5.1)
[2021-09-09 05:22] LABS: CALCIUM, TOTAL 8.1 mg/dL (8.8-10.5)
[2021-09-09 08:00] VITALS: BP 127/71
[2021-09-09] MEDS: DOCUSATE SODIUM 100 MG CAPSULE PO SCH ×2 (08:12→20:13)
[2021-09-09] MEDS ORDERED: PANTOPRAZOLE SODIUM 40 MG DR TABLET PO SCH (09:00)
[2021-09-09 10:23] LABS: ABG BASE EXCESS -6.7 mmol/L (-2.0-3.0); ABG CARBOXYHEMOGLOBIN 0.3 % (0.0-1.5); ABG HCO3 19.7 mmol/L (22.0-26.0); ABG METHEMOGLOBIN 0.3 % (0.0-1.5); ABG OXYGEN CONTENT 16.3 mL/dL (15.0-23.0); ABG OXYGEN SATURATION 98.5 % (95.0-98.0); ABG OXYHEMOGLOBIN 97.9 % (94.0-100.0); ABG PCO2 33 mmHg (35-45); ABG PH 7.366 (7.350-7.450); ABG TOTAL HEMOGLOBIN 11.7 G/dL (12.0-18.0); PO2, ARTERIAL BG 131.7 mmHg (92.0-100.0); SITE, BLOOD GAS LFT RADIAL; SOURCE, BLOOD GAS ARTERIAL; TEMPERATURE, FAHRENHEIT, BG 98.1 FAHREN (96.0-98.6)
[2021-09-09 10:24] LABS: O2 DEVICE,BLOOD GAS VENTILATOR (ROOM AIR); PEEP,BG 5 cm H2O; PRESSURE SUPPORT, BG 5 cm H2O; SPONTANEOUS VT, BG 601 ml; VENT MODE, BG Press. Support Vent. (ROOM AIR)
[2021-09-09 12:00] VITALS: BP 102/61
[2021-09-09] MEDS ORDERED: DEXMEDETOMIDINE HCL 200 MCG in SODIUM CHLORIDE 0.9% 48 ML IV PRN (12:30)
[2021-09-09] MEDS: RINGERS SOLUTION,LACTATED 1,000 ML IV SCH (13:39)
[2021-09-09] MEDS: DEXMEDETOMIDINE HCL 400 MCG in SODIUM CHLORIDE 0.9% 96 ML IV PRN ×2 (15:27→22:50)
[2021-09-09 16:00] VITALS: BP 120/70
[2021-09-09 20:00] VITALS: BP 111/69
[2021-09-10] MEDS: HEPARIN SODIUM,PORCINE 5,000 UNITS/ML VIAL SQ SCH ×3 (00:13→16:44)
[2021-09-10 00:51] VITALS: BP 121/76
[2021-09-10] MEDS: RINGERS SOLUTION,LACTATED 1,000 ML IV SCH ×2 (00:57→14:24)
[2021-09-10] MEDS: PROPOFOL 1000 MG/ISO-OSM 100 ML IV PRN ×3 (01:08→21:30)
[2021-09-10 04:00] VITALS: BP 130/87
[2021-09-10 08:00] VITALS: BP 134/89
[2021-09-10] MEDS: DEXMEDETOMIDINE HCL 400 MCG in SODIUM CHLORIDE 0.9% 96 ML IV PRN (09:11)
[2021-09-10] MEDS: DOCUSATE SODIUM 100 MG CAPSULE PO SCH ×2 (09:12→21:00)
[2021-09-10] MEDS: PANTOPRAZOLE SODIUM 40 MG/VIAL IVP SCH ×2 (09:59→22:33)
[2021-09-10] MEDS ORDERED: SODIUM CHLORIDE 0.9% 1,000 ML IV ONE (11:00)
[2021-09-10 12:00] VITALS: BP 163/83
[2021-09-10 16:00] VITALS: BP 154/96
[2021-09-10] MEDS: ONDANSETRON HCL 4 MG/2 ML VIAL IVP PRN (18:39)
[2021-09-10] MEDS ORDERED: NALOXONE HCL 0.4 MG/ML VIAL IVP PRN (18:45)
[2021-09-10 20:00] VITALS: BP 168/93
[2021-09-10] MEDS: MORPHINE SULFATE 2 MG/ML SYRINGE IVP PRN (20:00)
[2021-09-10] MEDS: ACETAMINOPHEN 325 MG TABLET PO PRN ×2 (20:35→23:22)
[2021-09-10 20:54] LABS: ABG BASE EXCESS -1.1 mmol/L (-2.0-3.0); ABG CARBOXYHEMOGLOBIN 0.1 % (0.0-1.5); ABG HCO3 23.8 mmol/L (22.0-26.0); ABG METHEMOGLOBIN 0.3 % (0.0-1.5); ABG OXYGEN CONTENT 17.2 mL/dL (15.0-23.0); ABG OXYGEN SATURATION 89.9 % (95.0-98.0); ABG OXYHEMOGLOBIN 89.5 % (94.0-100.0); ABG PCO2 36 mmHg (35-45); ABG PH 7.433 (7.350-7.450); ABG TOTAL HEMOGLOBIN 13.7 G/dL (12.0-18.0); PO2, ARTERIAL BG 56.3 mmHg (92.0-100.0); SOURCE, BLOOD GAS ARTERIAL; TEMPERATURE, FAHRENHEIT, BG 98.6 FAHREN (96.0-98.6)
[2021-09-10 20:55] LABS: O2 DEVICE,BLOOD GAS HI FL CANNULA (ROOM AIR); SITE, BLOOD GAS LFT RADIAL
[2021-09-10] MEDS ORDERED: RAPID SEQUENCE KIT [RSI] 1 EACH KIT MISC ONE (21:20)
[2021-09-10 22:19] LABS: ABG BASE EXCESS -6.9 mmol/L (-2.0-3.0); ABG CARBOXYHEMOGLOBIN 0.6 % (0.0-1.5); ABG HCO3 18.2 mmol/L (22.0-26.0); ABG METHEMOGLOBIN 0.1 % (0.0-1.5); ABG OXYGEN CONTENT 16.2 mL/dL (15.0-23.0); ABG OXYHEMOGLOBIN 81.4 % (94.0-100.0); ABG PCO2 57 mmHg (35-45); ABG TOTAL HEMOGLOBIN 14.2 G/dL (12.0-18.0); PO2, ARTERIAL BG 60.4 mmHg (92.0-100.0); SOURCE, BLOOD GAS ARTERIAL; TEMPERATURE, FAHRENHEIT, BG 100.5 FAHREN (96.0-98.6)
[2021-09-10 22:22] LABS: ABG PH 7.191 (7.350-7.450); O2 DEVICE,BLOOD GAS VENTILATOR (ROOM AIR); PEEP,BG 5 cm H2O; SITE, BLOOD GAS LFT RADIAL; VT, ABG 450 ml
[2021-09-10 22:23] LABS: SPONTANEOUS VT, BG 433 ml
[2021-09-10] MEDS: DOXYCYCLINE HYCLATE 100 MG in DEXTROSE 5%-WATER 100 ML IV SCH (22:34)
[2021-09-10] MEDS: PIPERACILLIN/TAZO 3.375 GM/D5W 50 ML IV SCH (22:34)
[2021-09-10] MEDS ORDERED: SODIUM CHLORIDE 0.9% 250 ML IV ONE (23:00)
[2021-09-11] VITALS: BP 96/49
[2021-09-11] MEDS: HEPARIN SODIUM,PORCINE 5,000 UNITS/ML VIAL SQ SCH ×4 (00:56→23:47)
[2021-09-11] MEDS: NOREPINEPHRINE 4 MG/D5%-WATER 250 ML IV PRN ×2 (02:30→11:28)
[2021-09-11] MEDS: PROPOFOL 1000 MG/ISO-OSM 100 ML IV PRN ×5 (03:16→21:20)
[2021-09-11 04:00] VITALS: BP 119/70
[2021-09-11] MEDS: DEXMEDETOMIDINE HCL 400 MCG in SODIUM CHLORIDE 0.9% 96 ML IV PRN ×4 (04:00→22:23)
[2021-09-11 04:14] LABS: BASOPHILS % (AUTO) 0.4 % (0.0-2.0); EOSINOPHILS % (AUTO) 0 % (1.0-6.0); HEMATOCRIT 34.5 % (41-53); HEMOGLOBIN 11.9 g/dL (13.5-17.5); LYMPHOCYTES # (AUTO) 0.9 K/uL (1.0-4.8); LYMPHOCYTES % (AUTO) 4.8 % (22.0-44.0); MEAN CORPUSCULAR HEMOGLOBIN 31.1 pg (26.0-34.0); MEAN CORPUSCULAR HGB CONC 34.6 G/dL (31.0-37.0); MEAN CORPUSCULAR VOLUME 90 fL (80-100); MONOCYTES # (AUTO) 0.9 K/uL (0.1-1.0); MONOCYTES % (AUTO) 4.5 % (2.0-9.0); NEUTROPHILS # (AUTO) 17.4 K/uL (1.8-7.7); PLATELET COUNT (AUTO) 271 K/uL (150-450); RED BLOOD CELL COUNT(AUTO) 3.83 MIL/uL (4.50-5.90); RED CELL DISTRIBUTION WIDTH 13.3 % (11.5-14.5)
[2021-09-11 04:35] LABS: CALCIUM, TOTAL 8.2 mg/dL (8.8-10.5); CREATININE 1.34 mg/dL (0.60-1.30)
[2021-09-11] MEDS: RINGERS SOLUTION,LACTATED 1,000 ML IV SCH ×2 (05:00→18:46)
[2021-09-11] MEDS: PIPERACILLIN/TAZO 3.375 GM/D5W 50 ML IV SCH ×4 (05:00→22:22)
[2021-09-11 05:34] LABS: NEUTROPHILS % (AUTO) 90.3 % (40.0-70.0)
[2021-09-11 08:00] VITALS: BP 133/83
[2021-09-11] MEDS: DOXYCYCLINE HYCLATE 100 MG in DEXTROSE 5%-WATER 100 ML IV SCH ×2 (09:35→21:21)
[2021-09-11] MEDS: DOCUSATE SODIUM 100 MG CAPSULE PO SCH ×2 (09:35→21:20)
[2021-09-11] MEDS: PANTOPRAZOLE SODIUM 40 MG/VIAL IVP SCH ×2 (09:36→21:19)
[2021-09-11 12:00] VITALS: BP 132/80
[2021-09-11 16:00] VITALS: BP 154/86
[2021-09-11] MEDS: MIDAZOLAM HCL 100 MG in SODIUM CHLORIDE 0.9% 180 ML IV PRN (16:42)
[2021-09-11] MEDS: LORazepam 2 MG/ML VIAL IVP PRN (17:03)
[2021-09-11] MEDS: FentaNYL CIT 1000MCG/0.9% NACL 100 ML IV PRN (17:29)
[2021-09-11 19:55] LABS: ABG CARBOXYHEMOGLOBIN 0.1 % (0.0-1.5); ABG HCO3 20.6 mmol/L (22.0-26.0); ABG METHEMOGLOBIN 0.3 % (0.0-1.5); ABG OXYGEN CONTENT 13.9 mL/dL (15.0-23.0); ABG OXYGEN SATURATION 85.3 % (95.0-98.0); ABG PCO2 37 mmHg (35-45); ABG PH 7.363 (7.350-7.450); ABG TOTAL HEMOGLOBIN 11.6 G/dL (12.0-18.0); O2 DEVICE,BLOOD GAS VENTILATOR (ROOM AIR); PEEP,BG 8 cm H2O; SITE, BLOOD GAS LFT RADIAL; SOURCE, BLOOD GAS ARTERIAL; TEMPERATURE, FAHRENHEIT, BG 100.3 FAHREN (96.0-98.6); VT, ABG 450 ml
[2021-09-11 20:00] VITALS: BP 115/70
[2021-09-11] MEDS ORDERED: VANCOMYCIN HCL 1.5 GM in DEXTROSE 5%-WATER 250 ML IV ONE (20:30)
[2021-09-11] MEDS: ACETAMINOPHEN 325 MG TABLET PO PRN (21:21)
[2021-09-12] VITALS: BP 111/72
[2021-09-12] MEDS: PROPOFOL 1000 MG/ISO-OSM 100 ML IV PRN ×5 (01:02→20:17)
[2021-09-12] MEDS: FentaNYL CIT 1000MCG/0.9% NACL 100 ML IV PRN ×2 (02:28→14:35)
[2021-09-12] MEDS: DEXMEDETOMIDINE HCL 400 MCG in SODIUM CHLORIDE 0.9% 96 ML IV PRN (03:21)
[2021-09-12] MEDS: NOREPINEPHRINE 4 MG/D5%-WATER 250 ML IV PRN ×3 (03:22→23:03)
[2021-09-12] MEDS: PIPERACILLIN/TAZO 3.375 GM/D5W 50 ML IV SCH ×4 (03:26→22:42)
[2021-09-12 04:00] VITALS: BP 101/65
[2021-09-12 05:08] LABS: BASOPHILS % (AUTO) 0.8 % (0.0-2.0); EOSINOPHILS % (AUTO) 3.1 % (1.0-6.0); HEMATOCRIT 30.2 % (41-53); HEMOGLOBIN 10.5 g/dL (13.5-17.5); LYMPHOCYTES # (AUTO) 1.4 K/uL (1.0-4.8); LYMPHOCYTES % (AUTO) 11.2 % (22.0-44.0); MEAN CORPUSCULAR HEMOGLOBIN 31.7 pg (26.0-34.0); MEAN CORPUSCULAR HGB CONC 34.8 G/dL (31.0-37.0); MEAN CORPUSCULAR VOLUME 91 fL (80-100); MONOCYTES # (AUTO) 1.1 K/uL (0.1-1.0); MONOCYTES % (AUTO) 8.5 % (2.0-9.0); NEUTROPHILS # (AUTO) 9.6 K/uL (1.8-7.7); NEUTROPHILS % (AUTO) 76.4 % (40.0-70.0); PLATELET COUNT (AUTO) 209 K/uL (150-450); RED BLOOD CELL COUNT(AUTO) 3.32 MIL/uL (4.50-5.90); RED CELL DISTRIBUTION WIDTH 13.4 % (11.5-14.5)
[2021-09-12 05:15] LABS: ANION GAP 9 mmol/L (8-16); CALCIUM, TOTAL 8.1 mg/dL (8.8-10.5); CARBON DIOXIDE 25 mmol/L (22-29); CHLORIDE 106 mmol/L (98-107); GLOMERULAR FILTR. RATE CALC > 60 mL/min (>60); GLUCOSE,RANDOM 100 mg/dL (70-110); POTASSIUM 3.7 mmol/L (3.5-5.1); SODIUM SERUM 140 mmol/L (136-145); UREA NITROGEN, BLOOD 12 mg/dL (7-18)
[2021-09-12] MEDS: MIDAZOLAM HCL 100 MG in SODIUM CHLORIDE 0.9% 180 ML IV PRN ×2 (06:58→23:02)
[2021-09-12 08:00] VITALS: BP 102/53
[2021-09-12] MEDS: VANCOMYCIN HCL 1.25 GM in DEXTROSE 5%-WATER 250 ML IV SCH ×2 (08:33→19:40)
[2021-09-12] MEDS: RINGERS SOLUTION,LACTATED 1,000 ML IV SCH ×2 (08:33→19:40)
[2021-09-12] MEDS: HEPARIN SODIUM,PORCINE 5,000 UNITS/ML VIAL SQ SCH ×2 (08:35→16:21)
[2021-09-12] MEDS: DOCUSATE SODIUM 100 MG CAPSULE PO SCH ×2 (08:36→20:58)
[2021-09-12] MEDS: PANTOPRAZOLE SODIUM 40 MG/VIAL IVP SCH ×2 (08:36→20:58)
[2021-09-12] MEDS: ETHYL ALCOHOL 62% ANTISEPTIC NASAL INHALANT 0.6 ML AMPUL NASAL SCH ×2 (08:36→20:18)
[2021-09-12] MEDS: DOXYCYCLINE HYCLATE 100 MG in DEXTROSE 5%-WATER 100 ML IV SCH ×2 (09:37→20:58)
[2021-09-12] MEDS ORDERED: SODIUM CHLORIDE 0.9% 500 ML IV ONE (11:43)
[2021-09-12 12:00] VITALS: BP 121/58
[2021-09-12 13:09] LABS: ABG CARBOXYHEMOGLOBIN 0.3 % (0.0-1.5); ABG HCO3 20.4 mmol/L (22.0-26.0); ABG METHEMOGLOBIN 0.3 % (0.0-1.5); ABG OXYGEN CONTENT 14.8 mL/dL (15.0-23.0); ABG OXYGEN SATURATION 98.9 % (95.0-98.0); ABG OXYHEMOGLOBIN 98.3 % (94.0-100.0); ABG PCO2 47 mmHg (35-45); ABG TOTAL HEMOGLOBIN 10.5 G/dL (12.0-18.0); SOURCE, BLOOD GAS ARTERIAL; TEMPERATURE, FAHRENHEIT, BG 98.6 FAHREN (96.0-98.6)
[2021-09-12 13:11] LABS: O2 DEVICE,BLOOD GAS VENTILATOR (ROOM AIR); PEEP,BG 12 cm H2O; SITE, BLOOD GAS ALINE; SPONTANEOUS VT, BG 441 ml; VT, ABG 450 ml
[2021-09-12 15:25] LABS: ABG BASE EXCESS -3.1 mmol/L (-2.0-3.0); ABG CARBOXYHEMOGLOBIN 0.3 % (0.0-1.5); ABG HCO3 22.1 mmol/L (22.0-26.0); ABG METHEMOGLOBIN 0.3 % (0.0-1.5); ABG OXYGEN CONTENT 14.8 mL/dL (15.0-23.0); ABG OXYGEN SATURATION 99.2 % (95.0-98.0); ABG OXYHEMOGLOBIN 98.6 % (94.0-100.0); ABG PCO2 39 mmHg (35-45); ABG PH 7.368 (7.350-7.450); ABG TOTAL HEMOGLOBIN 10.4 G/dL (12.0-18.0); O2 DEVICE,BLOOD GAS VENTILATOR (ROOM AIR); PO2, ARTERIAL BG 185.7 mmHg (92.0-100.0); SITE, BLOOD GAS ALINE; SOURCE, BLOOD GAS ARTERIAL; TEMPERATURE, FAHRENHEIT, BG 98.4 FAHREN (96.0-98.6); VENT MODE, BG 450 (ROOM AIR)
[2021-09-12 15:26] LABS: PEEP,BG 8 cm H2O
[2021-09-12 16:00] VITALS: BP 145/63
[2021-09-12 20:00] VITALS: BP 151/66
[2021-09-12] MEDS ORDERED: SODIUM CHLORIDE 0.9% 250 ML IV ONE (20:13)
[2021-09-13] VITALS: BP 143/58
[2021-09-13] MEDS: HEPARIN SODIUM,PORCINE 5,000 UNITS/ML VIAL SQ SCH ×3 (00:57→15:35)
[2021-09-13] MEDS: PROPOFOL 1000 MG/ISO-OSM 100 ML IV PRN ×5 (01:27→23:51)
[2021-09-13] MEDS: FentaNYL CIT 1000MCG/0.9% NACL 100 ML IV PRN ×3 (02:45→22:49)
[2021-09-13 04:00] VITALS: BP 152/61
[2021-09-13] MEDS: PIPERACILLIN/TAZO 3.375 GM/D5W 50 ML IV SCH ×4 (04:12→22:09)
[2021-09-13 05:48] LABS: BASOPHILS % (AUTO) 0.4 % (0.0-2.0); EOSINOPHILS % (AUTO) 6.2 % (1.0-6.0); HEMATOCRIT 27.7 % (41-53); HEMOGLOBIN 9.8 g/dL (13.5-17.5); LYMPHOCYTES % (AUTO) 12.4 % (22.0-44.0); MEAN CORPUSCULAR HEMOGLOBIN 32.4 pg (26.0-34.0); MEAN CORPUSCULAR HGB CONC 35.5 G/dL (31.0-37.0); MEAN CORPUSCULAR VOLUME 91 fL (80-100); MONOCYTES # (AUTO) 0.7 K/uL (0.1-1.0); MONOCYTES % (AUTO) 9.2 % (2.0-9.0); NEUTROPHILS # (AUTO) 5.5 K/uL (1.8-7.7); NEUTROPHILS % (AUTO) 71.8 % (40.0-70.0); PLATELET COUNT (AUTO) 208 K/uL (150-450); RED BLOOD CELL COUNT(AUTO) 3.04 MIL/uL (4.50-5.90); RED CELL DISTRIBUTION WIDTH 13.8 % (11.5-14.5)
[2021-09-13 06:05] LABS: ANION GAP 6 mmol/L (8-16); CALCIUM, TOTAL 7.8 mg/dL (8.8-10.5); CARBON DIOXIDE 26 mmol/L (22-29); CHLORIDE 105 mmol/L (98-107); CREATININE 1.02 mg/dL (0.60-1.30); GLOMERULAR FILTR. RATE CALC > 60 mL/min (>60); GLUCOSE,RANDOM 96 mg/dL (70-110); POTASSIUM 3.2 mmol/L (3.5-5.1); SODIUM SERUM 137 mmol/L (136-145); UREA NITROGEN, BLOOD 9 mg/dL (7-18)
[2021-09-13] MEDS: VANCOMYCIN HCL 1.25 GM in DEXTROSE 5%-WATER 250 ML IV SCH (07:30)
[2021-09-13] MEDS: DOCUSATE SODIUM 100 MG CAPSULE PO SCH ×2 (09:04→20:25)
[2021-09-13] MEDS: PANTOPRAZOLE SODIUM 40 MG/VIAL IVP SCH ×2 (09:04→20:25)
[2021-09-13] MEDS: ETHYL ALCOHOL 62% ANTISEPTIC NASAL INHALANT 0.6 ML AMPUL NASAL SCH ×2 (09:04→20:26)
[2021-09-13] MEDS: DOXYCYCLINE HYCLATE 100 MG in DEXTROSE 5%-WATER 100 ML IV SCH ×2 (09:05→20:28)
[2021-09-13] MEDS: RINGERS SOLUTION,LACTATED 1,000 ML IV SCH ×2 (09:06→22:09)
[2021-09-13 09:24] LABS: ABG BASE EXCESS -2.5 mmol/L (-2.0-3.0); ABG CARBOXYHEMOGLOBIN 0.1 % (0.0-1.5); ABG HCO3 22.7 mmol/L (22.0-26.0); ABG METHEMOGLOBIN 0.3 % (0.0-1.5); ABG OXYGEN CONTENT 12.3 mL/dL (15.0-23.0); ABG OXYGEN SATURATION 98.3 % (95.0-98.0); ABG OXYHEMOGLOBIN 97.9 % (94.0-100.0); ABG PCO2 34 mmHg (35-45); ABG PH 7.426 (7.350-7.450); ABG TOTAL HEMOGLOBIN 8.8 G/dL (12.0-18.0); PO2, ARTERIAL BG 111.1 mmHg (92.0-100.0); SOURCE, BLOOD GAS ARTERIAL
[2021-09-13 09:25] LABS: ABG A-A DIFF O2 135.3 mmHg (10-20.0); SITE, BLOOD GAS ARTERIAL LINE
[2021-09-13 09:26] LABS: O2 DEVICE,BLOOD GAS VENTILATOR (ROOM AIR); PEEP,BG 8 cm H2O; VT, ABG 450 ml
[2021-09-13 12:00] VITALS: BP 121/50
[2021-09-13] MEDS: VANCOMYCIN HCL 1 GM/D5% WATER 200 ML IV SCH (15:37)
[2021-09-13 16:00] VITALS: BP 128/51
[2021-09-13 20:00] VITALS: BP 132/52
[2021-09-13] MEDS: NOREPINEPHRINE 4 MG/D5%-WATER 250 ML IV PRN (20:27)
[2021-09-14] VITALS (8 sets, daily range): BP systolic 103–154; BP diastolic 43–80
[2021-09-14] MEDS: VANCOMYCIN HCL 1 GM/D5% WATER 200 ML IV SCH ×3 (00:37→16:11)
[2021-09-14] MEDS: HEPARIN SODIUM,PORCINE 5,000 UNITS/ML VIAL SQ SCH ×4 (00:37→23:22)
[2021-09-14] MEDS: MIDAZOLAM HCL 100 MG in SODIUM CHLORIDE 0.9% 180 ML IV PRN ×2 (00:57→21:27)
[2021-09-14] MEDS: PROPOFOL 1000 MG/ISO-OSM 100 ML IV PRN ×5 (03:13→22:23)
[2021-09-14] MEDS: PIPERACILLIN/TAZO 3.375 GM/D5W 50 ML IV SCH ×4 (03:20→21:51)
[2021-09-14] MEDS: FentaNYL CIT 1000MCG/0.9% NACL 100 ML IV PRN ×3 (03:21→16:07)
[2021-09-14 05:54] LABS: ANION GAP 6 mmol/L (8-16); CALCIUM, TOTAL 7.9 mg/dL (8.8-10.5); CARBON DIOXIDE 28 mmol/L (22-29); CHLORIDE 106 mmol/L (98-107); CREATININE 0.97 mg/dL (0.60-1.30); GLOMERULAR FILTR. RATE CALC > 60 mL/min (>60); GLUCOSE,RANDOM 95 mg/dL (70-110); POTASSIUM 3.1 mmol/L (3.5-5.1); SODIUM SERUM 140 mmol/L (136-145); UREA NITROGEN, BLOOD 9 mg/dL (7-18)
[2021-09-14] MEDS: DOCUSATE SODIUM 100 MG CAPSULE PO SCH ×2 (09:02→21:27)
[2021-09-14] MEDS: PANTOPRAZOLE SODIUM 40 MG/VIAL IVP SCH ×2 (09:03→21:27)
[2021-09-14] MEDS: DOXYCYCLINE HYCLATE 100 MG in DEXTROSE 5%-WATER 100 ML IV SCH ×2 (09:13→21:27)
[2021-09-14] MEDS: ETHYL ALCOHOL 62% ANTISEPTIC NASAL INHALANT 0.6 ML AMPUL NASAL SCH ×2 (09:13→21:28)
[2021-09-14] MEDS: RINGERS SOLUTION,LACTATED 1,000 ML IV SCH (11:03)
[2021-09-14] MEDS ORDERED: SODIUM CHLORIDE 0.9% 250 ML IV ONE (16:17)
[2021-09-15] VITALS (7 sets, daily range): BP systolic 102–179; BP diastolic 49–101
[2021-09-15] MEDS: VANCOMYCIN HCL 1 GM/D5% WATER 200 ML IV SCH ×4 (00:04→23:44)
[2021-09-15] MEDS: RINGERS SOLUTION,LACTATED 1,000 ML IV SCH ×2 (03:28→15:10)
[2021-09-15] MEDS: PROPOFOL 1000 MG/ISO-OSM 100 ML IV PRN ×4 (04:40→23:45)
[2021-09-15] MEDS: PIPERACILLIN/TAZO 3.375 GM/D5W 50 ML IV SCH ×4 (04:42→23:43)
[2021-09-15 06:16] LABS: ANION GAP 6 mmol/L (8-16); CALCIUM, TOTAL 7.9 mg/dL (8.8-10.5); CARBON DIOXIDE 28 mmol/L (22-29); CHLORIDE 105 mmol/L (98-107); CREATININE 1.05 mg/dL (0.60-1.30); GLOMERULAR FILTR. RATE CALC > 60 mL/min (>60); GLUCOSE,RANDOM 105 mg/dL (70-110); POTASSIUM 3.6 mmol/L (3.5-5.1); SODIUM SERUM 139 mmol/L (136-145); UREA NITROGEN, BLOOD 10 mg/dL (7-18); VANCOMYCIN,RANDOM 20.6 mcg/mL (25.0-50.0)
[2021-09-15] MEDS: DOCUSATE SODIUM 100 MG CAPSULE PO SCH ×2 (08:56→20:40)
[2021-09-15] MEDS: PANTOPRAZOLE SODIUM 40 MG/VIAL IVP SCH ×2 (08:56→20:40)
[2021-09-15] MEDS: HEPARIN SODIUM,PORCINE 5,000 UNITS/ML VIAL SQ SCH ×3 (08:56→23:43)
[2021-09-15] MEDS: ETHYL ALCOHOL 62% ANTISEPTIC NASAL INHALANT 0.6 ML AMPUL NASAL SCH ×2 (08:56→20:40)
[2021-09-15] MEDS: DOXYCYCLINE HYCLATE 100 MG in DEXTROSE 5%-WATER 100 ML IV SCH ×2 (08:57→20:40)
[2021-09-15] MEDS: FentaNYL CIT 1000MCG/0.9% NACL 100 ML IV PRN (11:09)
[2021-09-15] MEDS: ONDANSETRON HCL 4 MG/2 ML VIAL IVP PRN (11:20)
[2021-09-15] MEDS ORDERED: SODIUM CHLORIDE 0.9% 1,000 ML IV ONE (14:30)
[2021-09-15] MEDS: POTASSIUM CHL 10 MEQ/WATER 50 ML IV PRN ×3 (17:39→18:41)
[2021-09-16] VITALS (9 sets, daily range): BP systolic 127–173; BP diastolic 65–96
[2021-09-16] MEDS: RINGERS SOLUTION,LACTATED 1,000 ML IV SCH ×2 (04:55→17:53)
[2021-09-16] MEDS: PIPERACILLIN/TAZO 3.375 GM/D5W 50 ML IV SCH ×4 (05:46→22:39)
[2021-09-16 06:29] LABS: ANION GAP 7 mmol/L (8-16); CALCIUM, TOTAL 7.9 mg/dL (8.8-10.5); CARBON DIOXIDE 27 mmol/L (22-29); CHLORIDE 103 mmol/L (98-107); CREATININE 0.86 mg/dL (0.60-1.30); GLOMERULAR FILTR. RATE CALC > 60 mL/min (>60); GLUCOSE,RANDOM 99 mg/dL (70-110); POTASSIUM 3.7 mmol/L (3.5-5.1); SODIUM SERUM 137 mmol/L (136-145); UREA NITROGEN, BLOOD 11 mg/dL (7-18)
[2021-09-16] MEDS: PROPOFOL 1000 MG/ISO-OSM 100 ML IV PRN ×3 (07:20→23:23)
[2021-09-16] MEDS: MIDAZOLAM HCL 100 MG in SODIUM CHLORIDE 0.9% 180 ML IV PRN (08:41)
[2021-09-16] MEDS: HEPARIN SODIUM,PORCINE 5,000 UNITS/ML VIAL SQ SCH ×3 (08:54→23:05)
[2021-09-16] MEDS: VANCOMYCIN HCL 1 GM/D5% WATER 200 ML IV SCH ×3 (08:55→23:05)
[2021-09-16] MEDS: DOXYCYCLINE HYCLATE 100 MG in DEXTROSE 5%-WATER 100 ML IV SCH ×2 (08:55→20:30)
[2021-09-16] MEDS: ETHYL ALCOHOL 62% ANTISEPTIC NASAL INHALANT 0.6 ML AMPUL NASAL SCH ×2 (08:56→20:29)
[2021-09-16] MEDS: PANTOPRAZOLE SODIUM 40 MG/VIAL IVP SCH ×2 (09:30→20:29)
[2021-09-16] MEDS: FLUoxetine HCL 20 MG CAPSULE PO SCH (09:31)
[2021-09-16] MEDS: BuPROPion HCL 150 MG SR TABLET PO SCH (09:31)
[2021-09-16] MEDS: DOCUSATE SODIUM 100 MG CAPSULE PO SCH ×2 (09:31→20:29)
[2021-09-16] MEDS: LABETALOL HCL 5 MG/ML 20 ML VIAL IVP PRN (10:37)
[2021-09-16] MEDS: FentaNYL CIT 1000MCG/0.9% NACL 100 ML IV PRN (15:52)
[2021-09-16] MEDS: DEXMEDETOMIDINE HCL 400 MCG in SODIUM CHLORIDE 0.9% 96 ML IV PRN (18:31)
[2021-09-17] VITALS (12 sets, daily range): BP systolic 121–156; BP diastolic 71–97
[2021-09-17] MEDS: FentaNYL CIT 1000MCG/0.9% NACL 100 ML IV PRN ×2 (02:33→19:26)
[2021-09-17] MEDS: DEXMEDETOMIDINE HCL 400 MCG in SODIUM CHLORIDE 0.9% 96 ML IV PRN ×4 (02:34→23:45)
[2021-09-17] MEDS: PIPERACILLIN/TAZO 3.375 GM/D5W 50 ML IV SCH ×4 (04:49→22:59)
[2021-09-17 05:06] LABS: BASOPHILS % (AUTO) 0.3 % (0.0-2.0); EOSINOPHILS % (AUTO) 5.5 % (1.0-6.0); HEMATOCRIT 29.7 % (41-53); HEMOGLOBIN 10.4 g/dL (13.5-17.5); LYMPHOCYTES # (AUTO) 1.3 K/uL (1.0-4.8); LYMPHOCYTES % (AUTO) 15.1 % (22.0-44.0); MEAN CORPUSCULAR HEMOGLOBIN 31.5 pg (26.0-34.0); MEAN CORPUSCULAR HGB CONC 35.2 G/dL (31.0-37.0); MEAN CORPUSCULAR VOLUME 89 fL (80-100); MONOCYTES # (AUTO) 0.8 K/uL (0.1-1.0); MONOCYTES % (AUTO) 9.2 % (2.0-9.0); NEUTROPHILS # (AUTO) 6.2 K/uL (1.8-7.7); NEUTROPHILS % (AUTO) 69.9 % (40.0-70.0); PLATELET COUNT (AUTO) 343 K/uL (150-450); RED BLOOD CELL COUNT(AUTO) 3.32 MIL/uL (4.50-5.90); RED CELL DISTRIBUTION WIDTH 13.4 % (11.5-14.5)
[2021-09-17 05:20] LABS: ANION GAP 9 mmol/L (8-16); CALCIUM, TOTAL 8.1 mg/dL (8.8-10.5); CARBON DIOXIDE 25 mmol/L (22-29); CHLORIDE 104 mmol/L (98-107); GLOMERULAR FILTR. RATE CALC > 60 mL/min (>60); GLUCOSE,RANDOM 111 mg/dL (70-110); POTASSIUM 3.2 mmol/L (3.5-5.1); SODIUM SERUM 138 mmol/L (136-145); UREA NITROGEN, BLOOD 12 mg/dL (7-18)
[2021-09-17] MEDS: POTASSIUM CHL 10 MEQ/WATER 50 ML IV PRN ×3 (05:45→06:42)
[2021-09-17] MEDS: RINGERS SOLUTION,LACTATED 1,000 ML IV SCH ×2 (06:16→20:44)
[2021-09-17] MEDS: PANTOPRAZOLE SODIUM 40 MG/VIAL IVP SCH ×2 (08:06→20:46)
[2021-09-17] MEDS: HYDROCODONE/ACETAMINOPHEN 5-325 MG TABLET PO PRN (08:06)
[2021-09-17] MEDS: DOCUSATE SODIUM 100 MG CAPSULE PO SCH ×2 (08:06→20:46)
[2021-09-17] MEDS: VANCOMYCIN HCL 1 GM/D5% WATER 200 ML IV SCH ×3 (08:06→23:51)
[2021-09-17] MEDS: BuPROPion HCL 150 MG SR TABLET PO SCH (08:06)
[2021-09-17] MEDS: FLUoxetine HCL 20 MG CAPSULE PO SCH (08:07)
[2021-09-17] MEDS: HEPARIN SODIUM,PORCINE 5,000 UNITS/ML VIAL SQ SCH ×3 (08:07→23:46)
[2021-09-17] MEDS: ETHYL ALCOHOL 62% ANTISEPTIC NASAL INHALANT 0.6 ML AMPUL NASAL SCH ×2 (08:07→20:53)
[2021-09-17] MEDS: PROPOFOL 1000 MG/ISO-OSM 100 ML IV PRN ×3 (08:08→23:47)
[2021-09-17 10:24] LABS: ABG BASE EXCESS -0.2 mmol/L (-2.0-3.0); ABG CARBOXYHEMOGLOBIN 0.3 % (0.0-1.5); ABG HCO3 24.9 mmol/L (22.0-26.0); ABG METHEMOGLOBIN 0.3 % (0.0-1.5); ABG OXYGEN SATURATION 97.8 % (95.0-98.0); ABG OXYHEMOGLOBIN 97.2 % (94.0-100.0); ABG PCO2 30 mmHg (35-45); ABG PH 7.505 (7.350-7.450); ABG TOTAL HEMOGLOBIN 10.9 G/dL (12.0-18.0); PO2, ARTERIAL BG 100.2 mmHg (92.0-100.0); SITE, BLOOD GAS LFT RADIAL; SOURCE, BLOOD GAS ARTERIAL; TEMPERATURE, FAHRENHEIT, BG 98.6 FAHREN (96.0-98.6)
[2021-09-17] MEDS: DOXYCYCLINE HYCLATE 100 MG in DEXTROSE 5%-WATER 100 ML IV SCH ×2 (10:24→20:45)
[2021-09-17 10:25] LABS: ABG A-A DIFF O2 114.8 mmHg (10-20.0); O2 DEVICE,BLOOD GAS VENTILATOR (ROOM AIR); PEEP,BG 5 cm H2O; VT, ABG 450 ml
[2021-09-17 10:25] LABS: POTASSIUM 3.2 mmol/L (3.5-5.1)
[2021-09-17 10:46] LABS: PHOSPHORUS 3.1 mg/dL (2.5-4.9)
[2021-09-17] MEDS ORDERED: FUROSEMIDE 20 MG/2 ML VIAL IVP ONE (11:00)
[2021-09-17] MEDS: POTASSIUM CHLORIDE 10% 40 MEQ/30 ML LIQUID UDCUP NG PRN (11:18)
[2021-09-17] MEDS ORDERED: SODIUM CHLORIDE 0.9% 250 ML IV ONE (13:52)
[2021-09-17] MEDS: MIDAZOLAM HCL 100 MG in SODIUM CHLORIDE 0.9% 180 ML IV PRN (14:00)
[2021-09-17 15:51] LABS: ABG BASE EXCESS -1.9 mmol/L (-2.0-3.0); ABG CARBOXYHEMOGLOBIN 0.3 % (0.0-1.5); ABG HCO3 23.1 mmol/L (22.0-26.0); ABG METHEMOGLOBIN 0.3 % (0.0-1.5); ABG OXYGEN CONTENT 15.5 mL/dL (15.0-23.0); ABG OXYHEMOGLOBIN 97.4 % (94.0-100.0); ABG PCO2 38 mmHg (35-45); ABG PH 7.395 (7.350-7.450); ABG TOTAL HEMOGLOBIN 11.2 G/dL (12.0-18.0); PO2, ARTERIAL BG 115.3 mmHg (92.0-100.0); SOURCE, BLOOD GAS ARTERIAL; TEMPERATURE, FAHRENHEIT, BG 98.6 FAHREN (96.0-98.6)
[2021-09-17 16:02] LABS: CPAP, BG 0 cm H2O; O2 DEVICE,BLOOD GAS VENTILATOR (ROOM AIR); PRESSURE SUPPORT, BG 8 cm H2O; SITE, BLOOD GAS LFT RADIAL; SPONTANEOUS VT, BG 450 ml; VENT MODE, BG CPAP (ROOM AIR)
[2021-09-17] MEDS: QUEtiapine FUMARATE 25 MG TABLET NG SCH ×2 (17:24→20:46)
[2021-09-18] VITALS (8 sets, daily range): BP systolic 63–159; BP diastolic 72–125
[2021-09-18] MEDS: PROPOFOL 1000 MG/ISO-OSM 100 ML IV PRN ×3 (02:46→09:37)
[2021-09-18 04:51] LABS: BASOPHILS % (AUTO) 0.5 % (0.0-2.0); EOSINOPHILS % (AUTO) 6.4 % (1.0-6.0); HEMATOCRIT 28.9 % (41-53); HEMOGLOBIN 10.5 g/dL (13.5-17.5); LYMPHOCYTES # (AUTO) 1.3 K/uL (1.0-4.8); LYMPHOCYTES % (AUTO) 14.1 % (22.0-44.0); MEAN CORPUSCULAR HEMOGLOBIN 32.7 pg (26.0-34.0); MEAN CORPUSCULAR HGB CONC 36.4 G/dL (31.0-37.0); MEAN CORPUSCULAR VOLUME 90 fL (80-100); MONOCYTES # (AUTO) 0.7 K/uL (0.1-1.0); MONOCYTES % (AUTO) 7.2 % (2.0-9.0); NEUTROPHILS # (AUTO) 6.9 K/uL (1.8-7.7); NEUTROPHILS % (AUTO) 71.8 % (40.0-70.0); PLATELET COUNT (AUTO) 365 K/uL (150-450); RED BLOOD CELL COUNT(AUTO) 3.23 MIL/uL (4.50-5.90); RED CELL DISTRIBUTION WIDTH 13.3 % (11.5-14.5)
[2021-09-18 05:12] LABS: ANION GAP 10 mmol/L (8-16); CARBON DIOXIDE 26 mmol/L (22-29); CHLORIDE 104 mmol/L (98-107); CREATININE 0.88 mg/dL (0.60-1.30); GLOMERULAR FILTR. RATE CALC > 60 mL/min (>60); GLUCOSE,RANDOM 114 mg/dL (70-110); POTASSIUM 3.5 mmol/L (3.5-5.1); SODIUM SERUM 140 mmol/L (136-145); UREA NITROGEN, BLOOD 11 mg/dL (7-18); VANCOMYCIN,RANDOM 24.5 mcg/mL (25.0-50.0)
[2021-09-18] MEDS: PIPERACILLIN/TAZO 3.375 GM/D5W 50 ML IV SCH ×4 (05:23→22:38)
[2021-09-18] MEDS ORDERED: FUROSEMIDE 20 MG/2 ML VIAL IVP ONE (08:00)
[2021-09-18] MEDS: DOXYCYCLINE HYCLATE 100 MG in DEXTROSE 5%-WATER 100 ML IV SCH ×2 (08:50→20:21)
[2021-09-18] MEDS: VANCOMYCIN HCL 1.25 GM in DEXTROSE 5%-WATER 250 ML IV SCH ×3 (08:52→23:34)
[2021-09-18] MEDS: ETHYL ALCOHOL 62% ANTISEPTIC NASAL INHALANT 0.6 ML AMPUL NASAL SCH ×2 (08:52→20:21)
[2021-09-18] MEDS: FLUoxetine HCL 20 MG CAPSULE PO SCH (08:52)
[2021-09-18] MEDS: QUEtiapine FUMARATE 25 MG TABLET NG SCH ×2 (08:53→20:22)
[2021-09-18] MEDS: POTASSIUM CHLORIDE 10% 40 MEQ/30 ML LIQUID UDCUP NG PRN (08:53)
[2021-09-18] MEDS: PANTOPRAZOLE SODIUM 40 MG/VIAL IVP SCH ×2 (08:53→20:22)
[2021-09-18] MEDS: DOCUSATE SODIUM 100 MG CAPSULE PO SCH ×2 (08:53→20:23)
[2021-09-18] MEDS: HEPARIN SODIUM,PORCINE 5,000 UNITS/ML VIAL SQ SCH ×3 (08:54→23:36)
[2021-09-18] MEDS: BuPROPion HCL 150 MG SR TABLET PO SCH (08:54)
[2021-09-18] MEDS: RINGERS SOLUTION,LACTATED 1,000 ML IV SCH ×2 (08:55→23:31)
[2021-09-18] MEDS: LABETALOL HCL 5 MG/ML 20 ML VIAL IVP PRN (08:56)
[2021-09-18] MEDS: DEXMEDETOMIDINE HCL 400 MCG in SODIUM CHLORIDE 0.9% 96 ML IV PRN ×3 (08:56→22:38)
[2021-09-18 11:16] LABS: ABG BASE EXCESS -0.3 mmol/L (-2.0-3.0); ABG CARBOXYHEMOGLOBIN 0.3 % (0.0-1.5); ABG HCO3 24.2 mmol/L (22.0-26.0); ABG METHEMOGLOBIN 0.3 % (0.0-1.5); ABG OXYGEN CONTENT 15.6 mL/dL (15.0-23.0); ABG OXYGEN SATURATION 97.4 % (95.0-98.0); ABG OXYHEMOGLOBIN 96.8 % (94.0-100.0); ABG PCO2 41 mmHg (35-45); ABG PH 7.395 (7.350-7.450); ABG TOTAL HEMOGLOBIN 11.4 G/dL (12.0-18.0); PO2, ARTERIAL BG 98.9 mmHg (92.0-100.0); SOURCE, BLOOD GAS ARTERIAL; TEMPERATURE, FAHRENHEIT, BG 98.6 FAHREN (96.0-98.6)
[2021-09-18 11:18] LABS: SITE, BLOOD GAS LFT RADIAL
[2021-09-18 11:19] LABS: CPAP, BG 0 cm H2O; O2 DEVICE,BLOOD GAS VENTILATOR (ROOM AIR); PRESSURE SUPPORT, BG 8 cm H2O; SPONTANEOUS VT, BG 550 ml; VENT MODE, BG CPAP (ROOM AIR)
[2021-09-18] MEDS ORDERED: GuaiFENesin/D-METHORPHAN/PHENYLEPH 5 ML LIQUID ORAL.SYG PO SCH (12:30)
[2021-09-18] MEDS: ONDANSETRON HCL 4 MG/2 ML VIAL IVP PRN (12:50)
[2021-09-18] MEDS: LORazepam 2 MG/ML VIAL IVP PRN ×2 (13:46→20:22)
[2021-09-18] MEDS ORDERED: SODIUM CHLORIDE 0.9% 500 ML IV ONE (16:24)
[2021-09-18] MEDS: MORPHINE SULFATE 2 MG/ML SYRINGE IVP PRN (17:17)
[2021-09-19] VITALS (8 sets, daily range): BP systolic 127–158; BP diastolic 72–88
[2021-09-19] MEDS: LORazepam 2 MG/ML VIAL IVP PRN ×3 (02:22→18:20)
[2021-09-19] MEDS: PIPERACILLIN/TAZO 3.375 GM/D5W 50 ML IV SCH ×4 (04:17→22:57)
[2021-09-19 04:49] LABS: BASOPHILS % (AUTO) 1.1 % (0.0-2.0); EOSINOPHILS % (AUTO) 3.6 % (1.0-6.0); HEMATOCRIT 30.2 % (41-53); HEMOGLOBIN 10.5 g/dL (13.5-17.5); LYMPHOCYTES # (AUTO) 1.5 K/uL (1.0-4.8); LYMPHOCYTES % (AUTO) 10.4 % (22.0-44.0); MEAN CORPUSCULAR HEMOGLOBIN 31.3 pg (26.0-34.0); MEAN CORPUSCULAR HGB CONC 34.8 G/dL (31.0-37.0); MEAN CORPUSCULAR VOLUME 90 fL (80-100); MONOCYTES # (AUTO) 0.7 K/uL (0.1-1.0); MONOCYTES % (AUTO) 4.9 % (2.0-9.0); NEUTROPHILS # (AUTO) 11.2 K/uL (1.8-7.7); PLATELET COUNT (AUTO) 443 K/uL (150-450); RED BLOOD CELL COUNT(AUTO) 3.36 MIL/uL (4.50-5.90); RED CELL DISTRIBUTION WIDTH 13.6 % (11.5-14.5)
[2021-09-19 05:05] LABS: ANION GAP 9 mmol/L (8-16); CALCIUM, TOTAL 8.4 mg/dL (8.8-10.5); CARBON DIOXIDE 29 mmol/L (22-29); CHLORIDE 104 mmol/L (98-107); CREATININE 0.99 mg/dL (0.60-1.30); GLOMERULAR FILTR. RATE CALC > 60 mL/min (>60); GLUCOSE,RANDOM 95 mg/dL (70-110); POTASSIUM 3.5 mmol/L (3.5-5.1); SODIUM SERUM 142 mmol/L (136-145); UREA NITROGEN, BLOOD 8 mg/dL (7-18)
[2021-09-19] MEDS: DEXMEDETOMIDINE HCL 400 MCG in SODIUM CHLORIDE 0.9% 96 ML IV PRN (06:42)
[2021-09-19] MEDS: VANCOMYCIN HCL 1.25 GM in DEXTROSE 5%-WATER 250 ML IV SCH ×2 (08:27→16:30)
[2021-09-19] MEDS: FLUoxetine HCL 20 MG CAPSULE PO SCH (08:28)
[2021-09-19] MEDS: ETHYL ALCOHOL 62% ANTISEPTIC NASAL INHALANT 0.6 ML AMPUL NASAL SCH ×2 (08:28→20:26)
[2021-09-19] MEDS: HEPARIN SODIUM,PORCINE 5,000 UNITS/ML VIAL SQ SCH ×3 (08:28→23:22)
[2021-09-19] MEDS: PANTOPRAZOLE SODIUM 40 MG/VIAL IVP SCH ×2 (08:28→20:52)
[2021-09-19] MEDS: BuPROPion HCL 150 MG SR TABLET PO SCH (08:29)
[2021-09-19] MEDS: ACETAMINOPHEN 325 MG TABLET PO PRN (08:29)
[2021-09-19] MEDS: QUEtiapine FUMARATE 25 MG TABLET NG SCH ×2 (08:30→20:25)
[2021-09-19] MEDS: HYDROCODONE/ACETAMINOPHEN 5-325 MG TABLET PO PRN ×3 (08:55→16:30)
[2021-09-19] MEDS: POTASSIUM CHL 10 MEQ/WATER 50 ML IV PRN ×3 (08:57→12:17)
[2021-09-19] MEDS: DOCUSATE SODIUM 100 MG CAPSULE PO SCH ×2 (09:00→20:48)
[2021-09-19] MEDS: DOXYCYCLINE HYCLATE 100 MG in DEXTROSE 5%-WATER 100 ML IV SCH ×2 (09:49→20:25)
[2021-09-19] MEDS: RINGERS SOLUTION,LACTATED 1,000 ML IV SCH (13:22)
[2021-09-19] MEDS: MORPHINE SULFATE 2 MG/ML SYRINGE IVP PRN (14:07)
[2021-09-19] MEDS ORDERED: SODIUM CHLORIDE 0.9% 250 ML IV ONE (16:27)
[2021-09-19] MEDS ORDERED: OLAN10TA74 PO (17:03)
[2021-09-19] MEDS ORDERED: BUPR75 PO (17:12)
[2021-09-19] MEDS ORDERED: BENZ2TAB10 PO (17:12)
[2021-09-19] MEDS ORDERED: QUET200T PO (17:12)
[2021-09-19] MEDS ORDERED: FLUO20CA36 PO (17:12)
[2021-09-19] MEDS ORDERED: BUPR-93 PO (17:15)
[2021-09-19] MEDS ORDERED: LORazepam 2 MG/ML VIAL IVP ONE (20:45)
[2021-09-20] MEDS: VANCOMYCIN HCL 1.25 GM in DEXTROSE 5%-WATER 250 ML IV SCH ×3 (00:12→16:23)
[2021-09-20] MEDS: LORazepam 2 MG/ML VIAL IVP PRN (00:52)
[2021-09-20] MEDS: RINGERS SOLUTION,LACTATED 1,000 ML IV SCH ×2 (01:50→16:24)
[2021-09-20 03:23] VITALS: BP 147/88
[2021-09-20] MEDS: MORPHINE SULFATE 2 MG/ML SYRINGE IVP PRN (03:36)
[2021-09-20] MEDS: PIPERACILLIN/TAZO 3.375 GM/D5W 50 ML IV SCH ×3 (04:50→16:23)
[2021-09-20] MEDS: HYDROCODONE/ACETAMINOPHEN 5-325 MG TABLET PO PRN (05:32)
[2021-09-20 07:26] LABS: ANION GAP 7 mmol/L (8-16); CALCIUM, TOTAL 8.8 mg/dL (8.8-10.5); CARBON DIOXIDE 27 mmol/L (22-29); CHLORIDE 102 mmol/L (98-107); CREATININE 0.93 mg/dL (0.60-1.30); GLOMERULAR FILTR. RATE CALC > 60 mL/min (>60); GLUCOSE,RANDOM 106 mg/dL (70-110); POTASSIUM 3.4 mmol/L (3.5-5.1); SODIUM SERUM 136 mmol/L (136-145); UREA NITROGEN, BLOOD 6 mg/dL (7-18); VANCOMYCIN,RANDOM 19.2 mcg/mL (25.0-50.0)
[2021-09-20] MEDS: PANTOPRAZOLE SODIUM 40 MG/VIAL IVP SCH ×2 (09:25→20:15)
[2021-09-20] MEDS: HEPARIN SODIUM,PORCINE 5,000 UNITS/ML VIAL SQ SCH ×2 (09:28→16:22)
[2021-09-20] MEDS: MULTIVITAMINS WITH MINERALS, THERAPEUTIC TABLET PO SCH (09:28)
[2021-09-20] MEDS: QUEtiapine FUMARATE 25 MG TABLET NG SCH ×2 (09:29→20:15)
[2021-09-20] MEDS: BuPROPion HCL 150 MG SR TABLET PO SCH (09:29)
[2021-09-20] MEDS: DOCUSATE SODIUM 100 MG CAPSULE PO SCH ×2 (09:29→20:15)
[2021-09-20] MEDS: FLUoxetine HCL 20 MG CAPSULE PO SCH (09:29)
[2021-09-20] MEDS: ETHYL ALCOHOL 62% ANTISEPTIC NASAL INHALANT 0.6 ML AMPUL NASAL SCH ×2 (09:30→20:15)
[2021-09-20 09:34] VITALS: BP 159/88
[2021-09-20] MEDS: DOXYCYCLINE HYCLATE 100 MG in DEXTROSE 5%-WATER 100 ML IV SCH (09:49)
[2021-09-20 13:08] VITALS: BP 141/96
[2021-09-20 16:03] VITALS: BP 148/81
[2021-09-20 19:42] VITALS: BP 147/88
[2021-09-21 00:15] VITALS: BP 140/68
[2021-09-21] MEDS: HEPARIN SODIUM,PORCINE 5,000 UNITS/ML VIAL SQ SCH ×4 (00:41→23:54)
[2021-09-21 03:49] VITALS: BP 154/90
[2021-09-21] MEDS: ACETAMINOPHEN 325 MG TABLET PO PRN ×2 (03:54→09:02)
[2021-09-21 07:46] VITALS: BP 153/85
[2021-09-21 08:35] LABS: ANION GAP 10 mmol/L (8-16); CALCIUM, TOTAL 8.6 mg/dL (8.8-10.5); CARBON DIOXIDE 27 mmol/L (22-29); CHLORIDE 104 mmol/L (98-107); CREATININE 0.91 mg/dL (0.60-1.30); GLOMERULAR FILTR. RATE CALC > 60 mL/min (>60); GLUCOSE,RANDOM 94 mg/dL (70-110); POTASSIUM 3.5 mmol/L (3.5-5.1); SODIUM SERUM 141 mmol/L (136-145); UREA NITROGEN, BLOOD 9 mg/dL (7-18)
[2021-09-21] MEDS: DOCUSATE SODIUM 100 MG CAPSULE PO SCH ×2 (09:02→20:24)
[2021-09-21] MEDS: FLUoxetine HCL 20 MG CAPSULE PO SCH (09:03)
[2021-09-21] MEDS: QUEtiapine FUMARATE 25 MG TABLET NG SCH ×2 (09:03→20:24)
[2021-09-21] MEDS: MULTIVITAMINS WITH MINERALS, THERAPEUTIC TABLET PO SCH (09:03)
[2021-09-21] MEDS: BuPROPion HCL 150 MG SR TABLET PO SCH (09:03)
[2021-09-21] MEDS: ETHYL ALCOHOL 62% ANTISEPTIC NASAL INHALANT 0.6 ML AMPUL NASAL SCH ×2 (09:04→20:22)
[2021-09-21] MEDS: PANTOPRAZOLE SODIUM 40 MG/VIAL IVP SCH ×2 (09:05→20:23)
[2021-09-21 10:53] VITALS: BP 153/85
[2021-09-21] MEDS: RINGERS SOLUTION,LACTATED 1,000 ML IV SCH (11:49)
[2021-09-21] MEDS: ONDANSETRON HCL 4 MG/2 ML VIAL IVP PRN (14:32)
[2021-09-21 19:42] VITALS: BP 130/81
[2021-09-22 00:24] VITALS: BP 121/77
[2021-09-22] MEDS: RINGERS SOLUTION,LACTATED 1,000 ML IV SCH ×2 (01:31→12:13)
[2021-09-22 04:36] VITALS: BP 144/87
[2021-09-22 07:17] LABS: ANION GAP 7 mmol/L (8-16); CALCIUM, TOTAL 8.8 mg/dL (8.8-10.5); CARBON DIOXIDE 27 mmol/L (22-29); CHLORIDE 103 mmol/L (98-107); CREATININE 0.92 mg/dL (0.60-1.30); GLOMERULAR FILTR. RATE CALC > 60 mL/min (>60); GLUCOSE,RANDOM 148 mg/dL (70-110); POTASSIUM 3.3 mmol/L (3.5-5.1); SODIUM SERUM 137 mmol/L (136-145); UREA NITROGEN, BLOOD 9 mg/dL (7-18)
[2021-09-22 08:27] VITALS: BP 139/89
[2021-09-22] MEDS: BuPROPion HCL 150 MG SR TABLET PO SCH (08:27)
[2021-09-22] MEDS: ETHYL ALCOHOL 62% ANTISEPTIC NASAL INHALANT 0.6 ML AMPUL NASAL SCH ×2 (08:27→21:00)
[2021-09-22] MEDS: FLUoxetine HCL 20 MG CAPSULE PO SCH (08:27)
[2021-09-22] MEDS: DOCUSATE SODIUM 100 MG CAPSULE PO SCH ×2 (08:27→21:59)
[2021-09-22] MEDS: PANTOPRAZOLE SODIUM 40 MG/VIAL IVP SCH ×2 (08:27→21:00)
[2021-09-22] MEDS: QUEtiapine FUMARATE 25 MG TABLET NG SCH ×2 (08:27→21:59)
[2021-09-22] MEDS: HEPARIN SODIUM,PORCINE 5,000 UNITS/ML VIAL SQ SCH ×3 (08:27→23:36)
[2021-09-22] MEDS: MULTIVITAMINS WITH MINERALS, THERAPEUTIC TABLET PO SCH (08:27)
[2021-09-22 12:43] VITALS: BP 143/87
[2021-09-22 16:07] VITALS: BP 139/85
[2021-09-22 19:46] VITALS: BP 129/87
[2021-09-22] MEDS: HYDROCODONE/ACETAMINOPHEN 5-325 MG TABLET PO PRN (21:59)
[2021-09-23] MEDS: RINGERS SOLUTION,LACTATED 1,000 ML IV SCH ×2 (03:35→17:20)
[2021-09-23 04:37] VITALS: BP 135/85
[2021-09-23 06:51] LABS: ANION GAP 8 mmol/L (8-16); CALCIUM, TOTAL 8.8 mg/dL (8.8-10.5); CARBON DIOXIDE 28 mmol/L (22-29); CHLORIDE 105 mmol/L (98-107); CREATININE 0.87 mg/dL (0.60-1.30); GLOMERULAR FILTR. RATE CALC > 60 mL/min (>60); GLUCOSE,RANDOM 98 mg/dL (70-110); POTASSIUM 3.6 mmol/L (3.5-5.1); SODIUM SERUM 141 mmol/L (136-145); UREA NITROGEN, BLOOD 11 mg/dL (7-18)
[2021-09-23 08:30] VITALS: BP 145/97
[2021-09-23] MEDS: QUEtiapine FUMARATE 25 MG TABLET NG SCH ×2 (08:37→20:26)
[2021-09-23] MEDS: HEPARIN SODIUM,PORCINE 5,000 UNITS/ML VIAL SQ SCH ×3 (08:37→23:58)
[2021-09-23] MEDS: MULTIVITAMINS WITH MINERALS, THERAPEUTIC TABLET PO SCH (08:37)
[2021-09-23] MEDS: BuPROPion HCL 150 MG SR TABLET PO SCH (08:37)
[2021-09-23] MEDS: FLUoxetine HCL 20 MG CAPSULE PO SCH (08:37)
[2021-09-23] MEDS: PANTOPRAZOLE SODIUM 40 MG/VIAL IVP SCH (08:41)
[2021-09-23] MEDS: DOCUSATE SODIUM 100 MG CAPSULE PO SCH ×2 (08:42→20:26)
[2021-09-23] MEDS: ETHYL ALCOHOL 62% ANTISEPTIC NASAL INHALANT 0.6 ML AMPUL NASAL SCH ×3 (12:13→20:35)
[2021-09-23] MEDS: PANTOPRAZOLE SODIUM 40 MG DR TABLET PO SCH ×2 (12:13→20:26)
[2021-09-23] MEDS ORDERED: BUPR150SR PO (14:25)
[2021-09-23] MEDS ORDERED: PROZ20 PO (14:25)
[2021-09-23 16:36] VITALS: BP 134/72
[2021-09-23 20:26] VITALS: BP 139/88
[2021-09-23] MEDS: GuaiFENesin/D-METHORPHAN/PHENYLEPH 5 ML LIQUID ORAL.SYG PO PRN (20:28)
[2021-09-24 04:44] VITALS: BP 148/92
[2021-09-24 07:45] VITALS: BP 136/81
[2021-09-24] MEDS: PANTOPRAZOLE SODIUM 40 MG DR TABLET PO SCH ×2 (08:38→20:38)
[2021-09-24] MEDS: ACETAMINOPHEN 325 MG TABLET PO PRN ×2 (08:38→20:40)
[2021-09-24] MEDS: FLUoxetine HCL 20 MG CAPSULE PO SCH (08:38)
[2021-09-24] MEDS: QUEtiapine FUMARATE 25 MG TABLET NG SCH ×2 (08:38→20:38)
[2021-09-24] MEDS: ETHYL ALCOHOL 62% ANTISEPTIC NASAL INHALANT 0.6 ML AMPUL NASAL SCH ×3 (08:38→20:41)
[2021-09-24] MEDS: MULTIVITAMINS WITH MINERALS, THERAPEUTIC TABLET PO SCH (08:38)
[2021-09-24] MEDS: HEPARIN SODIUM,PORCINE 5,000 UNITS/ML VIAL SQ SCH ×3 (08:38→23:12)
[2021-09-24] MEDS: BuPROPion HCL 150 MG SR TABLET PO SCH (08:38)
[2021-09-24] MEDS: DOCUSATE SODIUM 100 MG CAPSULE PO SCH ×2 (08:38→20:38)
[2021-09-24 13:42] LABS: ANION GAP 8 mmol/L (8-16); CALCIUM, TOTAL 9.3 mg/dL (8.8-10.5); CARBON DIOXIDE 27 mmol/L (22-29); CHLORIDE 102 mmol/L (98-107); CREATININE 1.08 mg/dL (0.60-1.30); GLOMERULAR FILTR. RATE CALC > 60 mL/min (>60); GLUCOSE,RANDOM 80 mg/dL (70-110); POTASSIUM 3.8 mmol/L (3.5-5.1); SODIUM SERUM 137 mmol/L (136-145); UREA NITROGEN, BLOOD 11 mg/dL (7-18)
[2021-09-24 15:33] VITALS: BP 130/75
[2021-09-24 19:16] VITALS: BP 143/89
[2021-09-24] MEDS: GuaiFENesin/D-METHORPHAN/PHENYLEPH 5 ML LIQUID ORAL.SYG PO PRN (20:40)
[2021-09-25 04:00] VITALS: BP 129/87
[2021-09-25 08:01] VITALS: BP 137/77
[2021-09-25] MEDS: ETHYL ALCOHOL 62% ANTISEPTIC NASAL INHALANT 0.6 ML AMPUL NASAL SCH ×2 (09:25→20:12)
[2021-09-25] MEDS: FLUoxetine HCL 20 MG CAPSULE PO SCH (09:25)
[2021-09-25] MEDS: BuPROPion HCL 150 MG SR TABLET PO SCH (09:25)
[2021-09-25] MEDS: QUEtiapine FUMARATE 25 MG TABLET NG SCH ×2 (09:25→20:12)
[2021-09-25] MEDS: HEPARIN SODIUM,PORCINE 5,000 UNITS/ML VIAL SQ SCH ×3 (09:25→23:28)
[2021-09-25] MEDS: PANTOPRAZOLE SODIUM 40 MG DR TABLET PO SCH ×2 (09:25→20:12)
[2021-09-25] MEDS: MULTIVITAMINS WITH MINERALS, THERAPEUTIC TABLET PO SCH (09:25)
[2021-09-25] MEDS: DOCUSATE SODIUM 100 MG CAPSULE PO SCH ×2 (09:26→20:17)
[2021-09-25] MEDS: ACETAMINOPHEN 325 MG TABLET PO PRN (14:13)
[2021-09-25 15:41] VITALS: BP 134/85
[2021-09-25 20:03] VITALS: BP 117/77
[2021-09-26] MEDS: ACETAMINOPHEN 325 MG TABLET PO PRN ×2 (03:20→14:40)
[2021-09-26 05:02] VITALS: BP 125/72
[2021-09-26 07:43] VITALS: BP 128/74
[2021-09-26] MEDS: HEPARIN SODIUM,PORCINE 5,000 UNITS/ML VIAL SQ SCH ×2 (08:37→15:57)
[2021-09-26] MEDS: BuPROPion HCL 150 MG SR TABLET PO SCH (08:37)
[2021-09-26] MEDS: FLUoxetine HCL 20 MG CAPSULE PO SCH (08:37)
[2021-09-26] MEDS: QUEtiapine FUMARATE 25 MG TABLET NG SCH (08:37)
[2021-09-26] MEDS: PANTOPRAZOLE SODIUM 40 MG DR TABLET PO SCH (08:37)
[2021-09-26] MEDS: ETHYL ALCOHOL 62% ANTISEPTIC NASAL INHALANT 0.6 ML AMPUL NASAL SCH (08:38)
[2021-09-26] MEDS: DOCUSATE SODIUM 100 MG CAPSULE PO SCH (08:41)
[2021-09-26] MEDS: MULTIVITAMINS WITH MINERALS, THERAPEUTIC TABLET PO SCH (08:41)
[2021-09-26 15:27] VITALS: BP 124/76
== END 2021-09-26 16:45 | disposition home health service (06) | DRG 812 ==
LOC: EMS 08:45 → ICU 18:51 → 5S 09-19 14:05 → 6N 09-22 17:40
PROVIDERS: ADMIT Internal Medicine; ATTEND Internal Medicine
PROC: 5A1955Z Respiratory Ventilation, Greater than 96 Consecutive Hours (ICD-10-PCS; principal; 2021-09-08)
PROC: 0BH17EZ Insertion of Endotracheal Airway into Trachea, Via Natural or Artificial Opening (ICD-10-PCS; 2021-09-08)
PROC: 02HV33Z Insertion of Infusion Device into Superior Vena Cava, Percutaneous Approach (ICD-10-PCS; 2021-09-17)
PROC: B548ZZA Ultrasonography of Superior Vena Cava, Guidance (ICD-10-PCS; 2021-09-17)
DX: T40.711A Poisoning by cannabis, accidental (unintentional), initial encounter (principal); J96.00 Acute respiratory failure, unspecified whether with hypoxia or hypercapnia; J69.0 Pneumonitis due to inhalation of food and vomit; G92.8 Other toxic encephalopathy; N17.9 Acute kidney failure, unspecified; J80 Acute respiratory distress syndrome; R65.10 Systemic inflammatory response syndrome (SIRS) of non-infectious origin without acute organ dysfunction; F25.9 Schizoaffective disorder, unspecified; I47.1 Supraventricular tachycardia; R56.9 Unspecified convulsions; E86.0 Dehydration; E87.6 Hypokalemia; F31.9 Bipolar disorder, unspecified; F41.9 Anxiety disorder, unspecified; R73.9 Hyperglycemia, unspecified; J98.11 Atelectasis; Z79.899 Other long term (current) drug therapy; Y92.89 Other specified places as the place of occurrence of the external cause; Z20.822 Contact with and (suspected) exposure to COVID-19
CPT/HCPCS: 31500; 36600; 70450; 71045; 71250; 74018; 80048; 80053; 80202; 82550; 82805; 82962; 83690; 83735; 84100; 84132; 84145; 84484; 85025; 87040; 87070; 87081; 87086; 92610; 93005; 93931; 93971; 94002; 94003; 97110; 97112; 97116; 97162; 97167; 97530; 97535; 99291; 99292; C9113; G0378; G0480; G0481; J0712; J1644; J1940; J2060; J2250; J2270; J2310; J2405; J2543; J2704; J3370; J3411; J3475; J3480; J3490; J7030; J7040; J7050; J7060; J7120; Q9967; 36415-L1; 36415-TC; U0003

== ENCOUNTER 2023-03-28 10:59 | Inpatient (IN) | payer MEDICAID, OTHER ==
[~2023-03-28] VITALS: Ht 167.6 cm; Wt 83.5 kg
[~2023-03-28 10:59] MED LIST changes: +BUPR-72 PO; -BUPR150SR PO; -FLUO-191 PO; +PROZ20 PO; -QUET300T5 PO; -RANI150T7 PO
[2023-03-28] MEDS ORDERED: IBUPROFEN 600 MG TABLET PO ONE (12:15)
[2023-03-28] MEDS ORDERED: IBUPROFEN 600 MG TABLET ONE (12:20)
[2023-03-28 12:49] LABS: BASOPHILS % (AUTO) 1.2 % (0.0-2.0); EOSINOPHILS % (AUTO) 1.6 % (1.0-6.0); HEMATOCRIT 37.7 % (41-53); HEMOGLOBIN 12.9 g/dL (13.5-17.5); LYMPHOCYTES # (AUTO) 1.5 K/uL (1.0-4.8); LYMPHOCYTES % (AUTO) 18.5 % (22.0-44.0); MEAN CORPUSCULAR HEMOGLOBIN 31.5 pg (26.0-34.0); MEAN CORPUSCULAR HGB CONC 34.3 G/dL (31.0-37.0); MEAN CORPUSCULAR VOLUME 92 fL (80-100); MONOCYTES # (AUTO) 0.5 K/uL (0.1-1.0); MONOCYTES % (AUTO) 6.8 % (2.0-9.0); NEUTROPHILS # (AUTO) 5.7 K/uL (1.8-7.7); NEUTROPHILS % (AUTO) 71.9 % (40.0-70.0); PLATELET COUNT (AUTO) 269 K/uL (150-450); RED CELL DISTRIBUTION WIDTH 13.1 % (11.5-14.5)
[2023-03-28 12:59] LABS: ANION GAP 9 mmol/L (8-16); CALCIUM, TOTAL 8.2 mg/dL (8.8-10.5); CARBON DIOXIDE 27 mmol/L (22-29); CHLORIDE 106 mmol/L (98-107); CREATININE 1.39 mg/dL (0.60-1.30); GLOMERULAR FILTR. RATE CALC 57 mL/min (>60); GLUCOSE,RANDOM 108 mg/dL (70-110); POTASSIUM 3.6 mmol/L (3.5-5.1); SODIUM SERUM 142 mmol/L (136-145)
[2023-03-28 13:05] LABS: ALANINE AMINOTRANSFERASE 17 U/L (12-78); ALBUMIN 3.4 g/dL (3.4-5.0); ALKALINE PHOSPHATASE 57 U/L (46-116); ASPARTATE AMINOTRANSFERASE 16 U/L (15-37); BILIRUBIN,TOTAL 0.1 mg/dL (0.1-1.0); TOTAL PROTEIN, SERUM 6.7 g/dL (6.4-8.2)
[2023-03-28] MEDS ORDERED: HALOPERIDOL 5 MG TABLET PO PRN (13:30)
[2023-03-28] MEDS: LORazepam 2 MG TABLET PO PRN (13:54)
[2023-03-28] MEDS ORDERED: ACETAMINOPHEN 500 MG TABLET PO ONE (14:45)
[2023-03-28 16:07] LABS: COVID AG,FIA SOURCE NASAL SWAB
[2023-03-28 17:50] LABS: AMPHET/METH SCREEN,URINE NEGATIVE (NEGATIVE); BARBITURATE SCREEN, URINE NEGATIVE (NEGATIVE); BENZODIAZEPINES SCREEN,URINE NEGATIVE (NEGATIVE); CANNABINOID SCREEN,URINE POSITIVE (NEGATIVE); COCAINE SCREEN,URINE NEGATIVE (NEGATIVE); METHADONE SCREEN, URINE NEGATIVE (NEGATIVE); OPIATE SCREEN,URINE NEGATIVE (NEGATIVE); PHENCYCLIDINE SCREEN,URINE NEGATIVE (NEGATIVE)
[2023-03-28] MEDS ORDERED: LORazepam 2 MG/ML VIAL IM ONE (18:45)
[2023-03-28] MEDS ORDERED: DiphenhydrAMINE HCL 50 MG/ML VIAL IM ONE (18:45)
[2023-03-28] MEDS ORDERED: HALOPERIDOL LACTATE 5 MG/ML VIAL IM ONE (18:45)
[2023-03-28] MEDS ORDERED: MAGNESIUM HYDROXIDE SUSPENSION 30 ML UDCUP PO PRN (19:45)
[2023-03-28] MEDS ORDERED: DOCUSATE SODIUM 100 MG CAPSULE PO PRN (19:45)
[2023-03-28] MEDS ORDERED: OMEPRAZOLE 20 MG CAPSULE PO PRN (19:45)
[2023-03-28] MEDS ORDERED: ALBUTEROL SULFATE HFA 90 MCG/PUFF 8 GM INHALER IH PRN (19:45)
[2023-03-28] MEDS ORDERED: BACITRACIN 28 GM OINTMENT TP PRN (19:45)
[2023-03-28] MEDS ORDERED: PETROLATUM,WHITE 28 GM JELLY TP PRN (19:45)
[2023-03-28] MEDS ORDERED: LOPERAMIDE HCL 2 MG CAPSULE PO PRN (19:45)
[2023-03-28] MEDS ORDERED: BENZOCAINE/MENTHOL LOZENGE PO PRN (19:45)
[2023-03-28] MEDS ORDERED: CloNIDine HCL 0.1 MG TABLET PO PRN (19:45)
[2023-03-29 07:22] LABS: ANION GAP 11 mmol/L (8-16); CALCIUM, TOTAL 8.9 mg/dL (8.8-10.5); CARBON DIOXIDE 26 mmol/L (22-29); CHLORIDE 103 mmol/L (98-107); CHOL/HDL RATIO 4.8 (4.2-7.3); CHOLESTEROL 169 mg/dL (131-200); CREATININE 0.99 mg/dL (0.60-1.30); GLOMERULAR FILTR. RATE CALC > 60 mL/min (>60); GLUCOSE,RANDOM 88 mg/dL (70-110); HDL CHOLESTEROL 35 mg/dL (40-60); LDL CHOL (CALC.) 98 mg/dL (0-130); POTASSIUM 4.1 mmol/L (3.5-5.1); SODIUM SERUM 140 mmol/L (136-145); THYROID STIMULATING HORMONE 1.18 uIU/mL (0.36-3.74); TRIGLYCERIDES 181 mg/dL (15-150)
[2023-03-29 07:24] LABS: HEMOGLOBIN A1C 5.3 % (3.8-5.6)
[2023-03-29] MEDS: MAG HYDROX/AL HYDROX/SIMETH ES 30 ML SUSPENSION UDCUP PO PRN ×2 (08:20→15:53)
[2023-03-29] MEDS: IBUPROFEN 600 MG TABLET PO PRN (11:05)
[2023-03-29] MEDS: ACETAMINOPHEN 325 MG TABLET PO PRN (11:05)
[2023-03-29] MEDS: LORazepam 2 MG TABLET PO PRN ×2 (12:41→20:17)
[2023-03-29] MEDS: ONDANSETRON HCL 4 MG TABLET PO PRN (12:41)
[2023-03-29 18:00] VITALS: BP 139/96; PULSE 73; RESP 18; TEMP 96.3; O2SAT 99
[2023-03-29] MEDS: ZOLPIDEM TARTRATE 10 MG TABLET PO PRN (20:17)
[2023-03-30] MEDS: ACETAMINOPHEN 325 MG TABLET PO PRN (02:53)
[2023-03-30 03:13] VITALS: BP 123/67; PULSE 78; RESP 18; TEMP 98; O2SAT 97
[2023-03-30] MEDS: IBUPROFEN 600 MG TABLET PO PRN ×2 (08:10→15:02)
[2023-03-30] MEDS: LORazepam 2 MG TABLET PO PRN (08:10)
[2023-03-30 08:12] VITALS: BP 118/77; PULSE 83; RESP 17; TEMP 97.3; O2SAT 98
[2023-03-30 08:34] VITALS: BP 115/85; PULSE 90; RESP 17; TEMP 97.6; O2SAT 94
[2023-03-30 09:12] VITALS: RESP 16
[2023-03-30] MEDS: ONDANSETRON HCL 4 MG TABLET PO PRN (13:33)
[2023-03-30 15:02] VITALS: RESP 18
[2023-03-30] MEDS: MAG HYDROX/AL HYDROX/SIMETH ES 30 ML SUSPENSION UDCUP PO PRN (18:33)
[2023-03-30 20:00] VITALS: BP 132/72; PULSE 76; RESP 19; TEMP 97.7; O2SAT 96
[2023-03-30] MEDS: QUEtiapine FUMARATE 300 MG TABLET PO SCH (20:25)
[2023-03-31 10:52] VITALS: BP 124/81; PULSE 88; RESP 20; TEMP 98.5; O2SAT 99
[2023-03-31 16:07] VITALS: RESP 17
[2023-03-31] MEDS: ONDANSETRON HCL 4 MG TABLET PO PRN (16:07)
[2023-03-31] MEDS: OMEPRAZOLE 20 MG CAPSULE PO SCH (16:07)
[2023-03-31] MEDS: IBUPROFEN 600 MG TABLET PO PRN ×2 (16:07→22:19)
[2023-03-31 17:07] VITALS: RESP 18
[2023-03-31] MEDS: QUEtiapine FUMARATE 300 MG TABLET PO SCH (20:04)
[2023-03-31 20:30] VITALS: BP 138/81; PULSE 73; RESP 18; TEMP 98.1
[2023-03-31 22:19] VITALS: RESP 18
[2023-03-31 23:19] VITALS: RESP 18
[2023-04-01] MEDS: ZOLPIDEM TARTRATE 10 MG TABLET PO PRN (02:39)
[2023-04-01 08:16] VITALS: BP 110/80; PULSE 67; RESP 18; TEMP 97.3; O2SAT 99
[2023-04-01] MEDS: OMEPRAZOLE 20 MG CAPSULE PO SCH ×2 (08:42→16:21)
[2023-04-01] MEDS: IBUPROFEN 600 MG TABLET PO PRN (16:20)
[2023-04-01 20:19] VITALS: BP 118/69; PULSE 74; RESP 22; TEMP 97.8; O2SAT 98
[2023-04-01] MEDS: ACETAMINOPHEN 325 MG TABLET PO PRN (20:40)
[2023-04-01] MEDS: QUEtiapine FUMARATE 300 MG TABLET PO SCH (20:42)
[2023-04-02] MEDS: LORazepam 2 MG TABLET PO PRN ×2 (03:21→16:46)
[2023-04-02] MEDS: OMEPRAZOLE 20 MG CAPSULE PO SCH ×2 (08:09→16:46)
[2023-04-02 08:26] VITALS: BP 127/75; PULSE 84; RESP 17; TEMP 97.7; O2SAT 99
[2023-04-02 11:27] VITALS: RESP 17
[2023-04-02] MEDS: IBUPROFEN 600 MG TABLET PO PRN (11:27)
[2023-04-02 12:27] VITALS: RESP 17
[2023-04-02 20:27] VITALS: BP 124/63; PULSE 65; RESP 18; TEMP 97.6; O2SAT 98
[2023-04-02] MEDS: QUEtiapine FUMARATE 300 MG TABLET PO SCH (20:38)
[2023-04-03] MEDS: ZOLPIDEM TARTRATE 10 MG TABLET PO PRN (00:44)
[2023-04-03] MEDS: LORazepam 2 MG TABLET PO PRN (00:44)
[2023-04-03] MEDS: OMEPRAZOLE 20 MG CAPSULE PO SCH (08:18)
[2023-04-03 09:19] VITALS: BP 107/72; PULSE 94; RESP 17; TEMP 97.5; O2SAT 100
[2023-04-03] MEDS ORDERED: QUET300T2 PO (11:52)
[2023-04-03] MEDS ORDERED: OMEP20 PO (11:52)
== END 2023-04-03 14:56 | disposition home or self-care (01) | DRG 750 ==
LOC: EMS 11:01 → UNDOADMIN 16:52 → B2S 16:52 → B3A 03-29 11:58
PROVIDERS: ADMIT Psychiatry & Neurology Psychiatry; ATTEND Psychiatry & Neurology Psychiatry
DX: F25.9 Schizoaffective disorder, unspecified (principal); G40.909 Epilepsy, unspecified, not intractable, without status epilepticus; R45.851 Suicidal ideations; E78.5 Hyperlipidemia, unspecified; F10.90 Alcohol use, unspecified, uncomplicated; F41.9 Anxiety disorder, unspecified; Z20.822 Contact with and (suspected) exposure to COVID-19; G47.00 Insomnia, unspecified; K59.00 Constipation, unspecified; Z88.8 Allergy status to other drugs, medicaments and biological substances
CPT/HCPCS: 80048; 80053; 80061; 80307; 83036; 84443; 85025; 99285; G0480; J1200; J1630; J2060; Q0162

== ENCOUNTER 2023-03-30 20:00 | Emergency (ER) | payer MEDICAID, OTHER ==
[~2023-03-30] VITALS: Ht 167.6 cm; Wt 81.8 kg
[2023-03-30] MEDS ORDERED: OMEPRAZOLE 20 MG CAPSULE PO ONE (22:00)
[2023-03-30] MEDS ORDERED: QUEtiapine FUMARATE 100 MG TABLET PO ONE (22:00)
[2023-03-30 22:39] LABS: BASOPHILS % (AUTO) 0.6 % (0.0-2.0); EOSINOPHILS % (AUTO) 0.4 % (1.0-6.0); HEMATOCRIT 41.4 % (41-53); LYMPHOCYTES # (AUTO) 1.5 K/uL (1.0-4.8); LYMPHOCYTES % (AUTO) 11.5 % (22.0-44.0); MEAN CORPUSCULAR HEMOGLOBIN 30.7 pg (26.0-34.0); MEAN CORPUSCULAR HGB CONC 33.7 G/dL (31.0-37.0); MEAN CORPUSCULAR VOLUME 91 fL (80-100); MONOCYTES # (AUTO) 0.8 K/uL (0.1-1.0); NEUTROPHILS # (AUTO) 10.4 K/uL (1.8-7.7); NEUTROPHILS % (AUTO) 81.5 % (40.0-70.0); PLATELET COUNT (AUTO) 353 K/uL (150-450); RED BLOOD CELL COUNT(AUTO) 4.55 MIL/uL (4.50-5.90)
[2023-03-30 22:51] LABS: ANION GAP 19 mmol/L (8-16); CALCIUM, TOTAL 8.7 mg/dL (8.8-10.5); CARBON DIOXIDE 25 mmol/L (22-29); CHLORIDE 95 mmol/L (98-107); CREATININE 0.99 mg/dL (0.60-1.30); GLOMERULAR FILTR. RATE CALC > 60 mL/min (>60); GLUCOSE,RANDOM 108 mg/dL (70-110); POTASSIUM 3.8 mmol/L (3.5-5.1); SODIUM SERUM 139 mmol/L (136-145)
[2023-03-30 22:57] LABS: ALANINE AMINOTRANSFERASE 20 U/L (12-78); ALBUMIN 4.1 g/dL (3.4-5.0); ALKALINE PHOSPHATASE 66 U/L (46-116); ASPARTATE AMINOTRANSFERASE 36 U/L (15-37); BILIRUBIN,TOTAL 0.4 mg/dL (0.1-1.0); LIPASE 15 U/L (73-393); TOTAL PROTEIN, SERUM 8.1 g/dL (6.4-8.2)
[2023-03-31] MEDS ORDERED: QUEtiapine FUMARATE 100 MG TABLET PO ONE (00:15)
[2023-03-31] MEDS ORDERED: OMEPRAZOLE 20 MG CAPSULE PO ONE (00:15)
[2023-03-31 00:21] LABS: APPEARANCE,URINE CLEAR (CLEAR); BILIRUBIN,URINE NEGATIVE (NEGATIVE); GLUCOSE, URINE (UA) NEGATIVE (NEGATIVE); KETONES,URINE 40-60 mg/dL (NEGATIVE); LEUKOCYTE ESTERASE ,URINE NEGATIVE (NEGATIVE); NITRATE,URINE NEGATIVE (NEGATIVE); OCCULT BLOOD,URINE TRACE (NEGATIVE); PH,URINE 6.5 (5.0-8.0); PROTEIN,URINE NEGATIVE (NEGATIVE); SPECIFIC GRAVITIY, URINE 1.017 (1.003-1.030); UROBILINOGEN,URINE <=1.0 mg/dL (<=1.0)
[2023-03-31] MEDS ORDERED: LORazepam 2 MG/ML VIAL IM ONE (00:30)
[2023-03-31 00:56] LABS: BACTERIA,URINE None Seen /HPF (None Seen); SQUAMOUS EPITHELIAL CELL,UR Few /LPF (None Seen); WBC,URINE None Seen /HPF (0-5)
[2023-03-31 00:57] LABS: RBC,URINE 0-2 /HPF (0-2)
[2023-03-31 06:44] VITALS: TEMP 98.8
[2023-03-31 08:00] VITALS: BP 125/71; PULSE 72; RESP 16
== END 2023-03-31 09:47 | disposition home or self-care (01) ==
LOC: EMS 20:02
DX: R10.84 Generalized abdominal pain (principal); F25.9 Schizoaffective disorder, unspecified; R45.851 Suicidal ideations; F31.9 Bipolar disorder, unspecified; Z88.8 Allergy status to other drugs, medicaments and biological substances
CPT/HCPCS: 99285; 74176; 80053; 81001; 83690; 84484; 85025; 36415; 96372; J2060